=== PATIENT | female | born 1990 | race Caucasian/White ===

== ENCOUNTER → 2016-08-03 | Outpatient (CLI) | payer OTHER ==
[2016-08-03 13:48] LABS: CH 31.2; HCT 36.5 % (34.0-46.0); HGB 12.8 gm/dL (11.4-16.0); MCH 30.6 pg (25.0-35.0); MCHC 35.2 g/dL (31.0-37.0); Mean Platelet Volume 7.9; RBC 4.19 m/uL (3.80-5.40); RDW 12.4 % (11.5-15.5); WBC 12.4 k/uL (3.8-10.6)
[2016-08-03 14:09] LABS: Glucose 106 mg/dL (74-99); Non-African American GFR(MDRD) >60 (>60 ml/min/1.73 sqM)
[2016-08-03 14:41] LABS: Hepatitis B Surface Ag Index 0.06
[2016-08-04 05:14] LABS: Toxoplasma Antibody (IgG) <3.0 IU/mL (<7.2)
== END | disposition home or self-care (01) ==
LOC: LABWHC1 13:08
PROVIDERS: ATTEND Obstetrics & Gynecology
DX: Z34.82 Encounter for supervision of other normal pregnancy, second trimester (principal); Z3A.00 Weeks of gestation of pregnancy not specified
CPT/HCPCS: 36415; 82565; 82947; 85027; 86762; 86777; 86778; 86780; 86850; 86900; 86901; 87340

== ENCOUNTER → 2016-08-23 | Outpatient (CLI) | payer OTHER ==
--- NOTE | 2016-08-23 09:25 | US ---
EXAMINATION TYPE: US OB anatomy transabd DATE OF EXAM: 08/23/2016 9:06 AM COMPARISON: NONE HISTORY: LGA TECHNIQUE: EXAM MEASUREMENTS: GESTATIONAL AGE / DATING Physician Established: (19 weeks/0 days) EDC: 01/17/2017 Dates by LMP: (19 weeks/0 days) EDC: 01/17/2017 Dates by First Scan: this is first scan here Dates by Current Scan for: (19 weeks/4 days) EDC: 01/13/2017 SURVEY IUP: Single PLACENTA: Anterior PREVIA: No previa LINA: 14.7 cm Normal CERVICAL LENGTH (transabdominal: norm > 3.0cm): 4.9 cm BIOMETRY PRESENTATION: Breech BPD: 4.5 cm 19 weeks / 6 days HC: 16.8 cm 19 weeks / 3 days AC: 14.5 cm 19 weeks / 6 days FL: 3.2 cm 20 weeks / 0 days ESTIMATED WEIGHT IN GRAMS: 316 grams ESTIMATED WEIGHT IN LBS/OZS: 0 lbs. 12 oz. WEIGHT PERCENTAGE BASED ON ESTABLISHED DATE: 89 % HC/AC: 1.2 FL/AC: 22 HEART RATE: 152 bpm RHYTHM: Normal ANATOMY SEEN (within normal limits): * Lateral Vent (< 1 cm) 0.7 cm * Cisterna Magna (< 1.1 cm) 0.3 cm * Nuchal Fold (< 0.6 cm) 0.4 cm * Cerebellum (varies with age) 1.9 cm Choroid Plexus (bilateral) Midline Falx Cavus Septi Pellucidi Four Chamber Heart Outflow tracts: LVOT/RVOT Stomach Situs Nose / Lips Diaphragm Kidneys (bilateral) Bladder Cord Insert Three Vessel Cord Longitudinal Spine Transverse Spine Arms (bilateral) Legs (bilateral) growth according to dates IMPRESSION: RAMIREZ FETUS PRESENT IN A BREECH PRESENTATION WITH A GESTATIONAL AGE OF 19 WEEKS 4 DAYS +/- 12 DAY S. ESTIMATED DATE OF CONFINEMENT BASED ON THIS EXAMINATION IS 01/13/2017.
== END | disposition home or self-care (01) ==
LOC: RADUSWWP 08:19
PROVIDERS: ATTEND Obstetrics & Gynecology
DX: O32.1XX0 Maternal care for breech presentation, not applicable or unspecified (principal); Z3A.19 19 weeks gestation of pregnancy
CPT/HCPCS: 76811

== ENCOUNTER → 2016-10-04 | Outpatient (CLI) | payer OTHER ==
[2016-10-04 12:33] LABS: CH 31.5; CHCM 34.6; HCT 36.9 % (34.0-46.0); HGB 12.9 gm/dL (11.4-16.0); MCH 31.9 pg (25.0-35.0); MCHC 34.8 g/dL (31.0-37.0); MCV 91.5 fL (80.0-100.0); Mean Platelet Volume 7.7; RBC 4.03 m/uL (3.80-5.40); RDW 13.1 % (11.5-15.5); WBC 12.8 k/uL (3.8-10.6)
== END | disposition home or self-care (01) ==
LOC: LABWHC1 11:01
PROVIDERS: ATTEND Obstetrics & Gynecology
DX: Z34.92 Encounter for supervision of normal pregnancy, unspecified, second trimester (principal)
CPT/HCPCS: 36415; 82950; 85027

== ENCOUNTER → 2016-10-18 | Outpatient (CLI) | payer OTHER ==
[2016-10-18 12:42] LABS: Glucose 3 Hour, Gest 148 mg/dL
== END | disposition home or self-care (01) ==
LOC: LABWHC1 08:43
PROVIDERS: ATTEND Obstetrics & Gynecology
DX: O99.810 Abnormal glucose complicating pregnancy (principal); Z3A.00 Weeks of gestation of pregnancy not specified
CPT/HCPCS: 36415; 82951; 82952

== ENCOUNTER 2017-01-09 18:06 | Inpatient (IN) | payer OTHER ==
[2017-01-09] MEDS ORDERED: CARBOPROST TROMETHAMINE 250 MCG/ML 1 ML AMP IM PRN (18:52)
[2017-01-09] MEDS ORDERED: LIDOCAINE 1% (PF) 10 MG/ML (30 ML SDV) SQ PRN (18:52)
[2017-01-09] MEDS ORDERED: OXYTOCIN 10 UNIT/ML 1 ML VIAL IM PRN (18:52)
[2017-01-09] MEDS ORDERED: TERBUTALINE 1 MG/ML VIAL SQ PRN (18:52)
[2017-01-09] MEDS ORDERED: METHYLERGONOVINE 0.2 MG/ML 1 ML AMP IM PRN (18:52)
[2017-01-09] MEDS: LACTATED RINGERS 1,000 ML IV SCH ×2 (19:05→19:28)
[2017-01-09 19:19] LABS: Basophils % (A) 0 %; CH 32.3; CHCM 36.3; Eosinophils # (A) 0.1 k/uL (0-0.7); Eosinophils % (A) 1 %; HCT 41.3 % (34.0-46.0); HDW 2.53; Luc # (Auto) 0.28; Luc % (Auto) 3; Lymphocytes # (A) 2.3 k/uL (1.0-4.8); Lymphocytes % (A) 22 %; MCH 32.4 pg (25.0-35.0); MCHC 36.3 g/dL (31.0-37.0); MCV 89.2 fL (80.0-100.0); Mean Platelet Volume 8.8; Monocytes # (A) 0.5 k/uL (0-1.0); Monocytes % (A) 4 %; Neutrophils # (A) 7.6 k/uL (1.3-7.7); Neutrophils % (A) 70 %; RBC 4.63 m/uL (3.80-5.40); RDW 13.2 % (11.5-15.5); WBC 10.8 k/uL (3.8-10.6); WBC (Perox) 10.47
[2017-01-09] MEDS: BUTORPHANOL 1 MG/ML 1 ML VIAL IV SCH (19:23)
--- NOTE | 2017-01-09 19:47 | P.HPOB ---
History of Present Illness H&P Date: 01/09/17 Chief Complaint: Contractions and leaking fluid. This patient is a 26-year-old 4 para 3 female estimated date of confinement 01/17/2017 estimated gestational age 38-6/7 weeks who presents to labor and delivery with complaints of contractions and leaking of fluid. Patient's found to be in active labor. Patient's care is per Dr. Odell and appears to be uncomplicated. Review of Systems Constitutional: Denies chills, Denies fever Ears, nose, mouth and throat: Denies headache, Denies sore throat Cardiovascular: Denies chest pain, Denies shortness of breath Respiratory: Denies cough Gastrointestinal: Reports heartburn Genitourinary: Reports Menstruation: Reports amenorrhea Integumentary: Denies pruritus, Denies rash Neurological: Denies numbness, Denies weakness Past Medical History Past Medical History: No Reported History Additional Past Medical History / Comment(s): Patient has had 3 spontaneous vaginal deliveries ranging from 6-1/2-7 lbs. 11 oz. History of Any Multi-Drug Resistant Organisms: None Reported Past Surgical History: No Surgical Hx Reported Past Anesthesia/Blood Transfusion Reactions: No Reported Reaction Past Psychological History: No Psychological Hx Reported Smoking Status: Former smoker Past Alcohol Use History: None Reported Past Drug Use History: None Reported Medications and Allergies Home Medications Medication Instructions Recorded Confirmed Type Pnv,Calcium 72/Iron/Folic Acid 1 tab PO DAILY 01/09/17 01/09/17 History [ Plus Tablet] Allergies Allergy/AdvReac Type Severity Reaction Status Date / Time No Known Allergies Allergy Verified 01/09/17 18:19 Exam - Vital Signs Vital signs: Vital Signs Temp Pulse Resp BP Pulse Ox 01/09/17 18:35 98.3 F 81 16 126/76 97 Intake and Output 01/09/17 01/09/17 01/09/17 06:59 14:59 22:59 Other: Weight 100.698 kg Patient Weight 01/10/17 06:59 Weight 100.698 kg - OBG Physical Exam Abdomen: bowel sounds normal, no diffuse tenderness, no bruit present, no guarding noted, no hepatomegaly, no splenomegaly, no mass Vulva: both: normal Vagina: normal moisture, no discharge Cervix: Cervix on admission is 5 cm dilated with gross rupture membranes. Cervix: no lesion, no discharge Uterus: enlarged (Fundal height at her last visit was 39 cm.) Results blood work shows she is A positive, rubella immune, RPR is nonreactive , ultrasounds have been normal. Patient had an abnormal Glucola with a normal three-hour gtt. Group B strep was negative. Result Diagrams: 01/09/17 19:08 Abnormal Lab Results - Last 24 Hours (Table) 01/09/17 Range/Units 19:08 WBC 10.8 H (3.8-10.6) k/uL Assessment and Plan (1) Third trimester Narrative/Plan: This is a 26-year-old 4 para 3 female 38-6/7 weeks gestation admitted to labor and delivery spontaneous rupture membranes in active labor. Plan is anticipate vaginal delivery. Status: Acute (2) Normal labor Status: Acute
--- NOTE | 2017-01-09 19:48 | P.MSEPDOC ---
Presenting Problems - Arrival Data Date of Arrival on Unit: 01/09/17 Time of Arrival on Unit: 18:05 Mode of Transport: Ambulatory - Complaint OB-Reason for Admission/Chief Complaint: Possible Onset of Labor, Rule Out SROM Comment: states some contractions and had rom at 1740 this pm. Medical History - Information : 4 Para: 3 Term: 3 : 0 Abortions: Spontaneous or Elective: 0 Number of Living Children: 3 - Gestational Age Expected Date of Delivery: 01/17/17 Gestational Age by STARR (wks/days): 38 Weeks and 6 Days Review of Systems - Review of Systems Constitutional: No problems Breast: No problems ENT: No problems Cardiovascular: No problems Respiratory: No problems Gastrointestinal: No problems Genitourinary: No problems Musculoskeletal: No problems Neurological: No problems Skin: No problems Vital Signs - Temperature Temperature: 98.3 F Temperature Source: Oral - Pulse Right Brachial Pulse Rate: 81 Pulse Assessment Method: Auscultation - Respirations Respiratory Rate: 16 Oxygen Delivery Method: Room Air O2 Sat by Pulse Oximetry: 97 - Blood Pressure Right Arm Blood Pressure: 126/76 Blood Pressure Mean: 92 Blood Pressure Source: Automatic Cuff Medical Screen Scoring (Pre) - Cervical Exam Dilation: 4-7 cm = 2 Membranes: Ruptured = 3 - Uterine Contractions Frequency: > or = 36 weeks =2 Duration: > 40 seconds = 2 - Maternal Vital Signs Maternal Temperature: N/A Maternal Blood Pressure: N/A Signs of Preeclampsia: N/A Maternal Respirations: N/A - Maternal Trauma Maternal Trauma: N/A - Assessment Baseline FHR: 135 Heart Rate - NICHD Category: Category I (Normal) = 0 NST: Non-reactive = 3 - Total Score Total Score (Pre): 12 Physician Notification (Pre) - Physician Notified Physician/Practitioner Notifed:: yes Spoke With: vinayak New Order Received: Yes - Notification Comment Comment: admission Medical Screen Scoring (Post) - Cervical Exam Dilation: 4-7 cm = 2 Effacement: More than 50% = 2 Membranes: Ruptured = 3 - Uterine Contractions Frequency: N/A, > or = 36 weeks =2 Duration: N/A - Maternal Vital Signs Maternal Temperature: N/A Maternal Blood Pressure: N/A Signs of Preeclampsia: N/A Maternal Respirations: N/A - Maternal Trauma Maternal Trauma: N/A - Assessment Heart Rate: 135 Heart Rate - NICHD Category: Category I (Normal) = 0 NST: Non-reactive = 3 Position: N/A Station: N/A - Total Score Total Score (Post): 12 - Post Treatment Level of Risk Post Treatment Level of Risk: High (10+) Physician Notification (Post) - Physician Notified Physician Notified Date: 01/09/17 Physician Notified Time: 18:40 Physician/Practitioner Notified:: yes Spoke With: stew Paz Order Received: Yes - Notification Comment Comment: admit Disposition - Disposition OB Disposition: Admit Transferred to:: st 4 I agree with the RN Medical Screening Exam: Yes Risk & Benefit of care provided described in d/c instruction: Yes Diagnosis: ENCOUNTER FOR FULL-TERM UNCOMPLICATED DELIVERY
[2017-01-09 21:06] VITALS: BMI 41.9
[2017-01-09] MEDS ORDERED: LANOLIN CREAM 5 GM TUBE TOPICAL PRN (21:44)
[2017-01-09] MEDS ORDERED: HYDROCORTISONE 2.5% RECTAL CREAM 30 GM TUBE RECTAL PRN (21:44)
[2017-01-09] MEDS ORDERED: ZOLPIDEM 5 MG TAB PO PRN (21:44)
[2017-01-09] MEDS ORDERED: WITCH HAZEL 1 EACH MED..PAD TOPICAL PRN (21:44)
[2017-01-09] MEDS ORDERED: SIMETHICONE 80 MG CHEWABLE PO PRN (21:44)
[2017-01-09] MEDS ORDERED: diphenhydrAMINE 50 MG/ML 1 ML VIAL IVP PRN (21:44)
[2017-01-09] MEDS ORDERED: ACETAMINOPHEN TAB 325 MG TAB PO PRN (21:44)
[2017-01-09] MEDS ORDERED: BENZOCAINE/MENTHOL SPRAY 1 GM/SPRAY AEROSOL TOPICAL PRN (21:44)
[2017-01-09] MEDS ORDERED: diphenhydrAMINE 25 MG CAP PO PRN (21:44)
[2017-01-09] MEDS ORDERED: BISACODYL 10 MG SUPP RECTAL PRN (21:44)
[2017-01-09] MEDS ORDERED: Acetaminophen-Codeine 300-30mg TAB PO PRN (21:44)
[2017-01-09] MEDS ORDERED: OXYTOCIN 20 UNITS/1000 ML NS 1,000 ML IV SCH (21:45)
--- NOTE | 2017-01-09 21:55 | P.PROBDLV ---
Vaginal Delivery Note - . Vaginal Delivery Note: Normal vaginal delivery viable male infant Apgars 8 and 9 delivery time was 2128 hrs. Please see dictated H&P for intimate details of this patient's admission. Brief summary this is a 26-year-old 4 para 3 female 38-6/7 weeks gestation who was admitted to labor and delivery with spontaneous rupture membranes in active labor. Patient arrived she is 5 cm dilated and quickly goes to 8 cm dilated. She does request an epidural at this time however after multiple attempts this is unable to be placed. I did give her half a milligram of Stadol for pain control. Patient then does progress to complete and at this time has bradycardia to the 50s and 60s. Oxygen is up administered and position changes are done in the usual resuscitative measures as well. heart tones continued to be in the 60s to 80s and therefore patient is taken to the section room for possible emergent . While in the C- section room patient is noted have heart tones in the 90s and I have her push. Patient pushes the head to the perineum with still has bradycardia and at this time a vacuum was applied. The first application does not create an adequate vacuum therefore the second application is done and with 1 pull gently we have delivery the infant's head over the intact perineum. Mouth and nares are bulb suctioned at this time and is noted to have a loop of cord that was next to the head. With gentle downward traction we then have deliver the anterior and posterior shoulder and rest this 's body. This is a vigorous viable male infant Apgars are 8 and 9 delivery time was 2128 hrs. Infant has spontaneous respirations and good cry and grossly appears normal. After delivery of the the umbilical cords doubly clamped and cut. The placenta is then spontaneously delivered intact. Inspection of perineum shows no lacerations and no repair is necessary. All counts are correct 3. and mother are taken to the birthing suite in satisfactory condition.
[2017-01-09] MEDS: IBUPROFEN 600 MG TAB PO PRN (22:19)
--- NOTE | 2017-01-10 06:12 | P.PNOBGVD ---
Subjective - Subjective Patient reports: Reports appetite normal, Reports voiding normally, Reports pain well controlled, Reports ambulating normally : doing well Objective - Latest Vital Signs Latest vital signs: Vital Signs Temp Pulse Resp BP Pulse Ox 01/10/17 03:54 98.3 F 73 16 108/57 96 01/10/17 00:00 96.8 F L 63 16 129/65 01/09/17 23:42 96.8 F L 63 16 129/65 01/09/17 23:12 96.9 F L 73 16 125/68 01/09/17 22:42 68 16 119/59 01/09/17 22:27 96.6 F L 73 16 130/72 01/09/17 22:12 80 16 133/65 01/09/17 21:57 96.1 F L 87 16 130/63 01/09/17 21:42 71 16 132/79 98 01/09/17 19:48 98.3 F 81 16 126/76 97 01/09/17 19:07 98.3 F 81 16 126/76 97 01/09/17 18:35 98.3 F 81 16 126/76 97 Intake and Output 01/09/17 01/09/17 01/10/17 14:59 22:59 06:59 Other: # Voids 0 2 Weight 100.698 kg Patient Weight 01/10/17 06:59 Weight 100.698 kg - Exam Lungs: bilateral: normal Chest: Normal S1, Normal S2 Extremities: Present: normal Abdomen: Present: normal appearance, soft Uterus: Present: normal, firm - Labs Labs: Abnormal Lab Results - Last 24 Hours (Table) 01/09/17 Range/Units 19:08 WBC 10.8 H (3.8-10.6) k/uL Assessment and Plan (1) Third trimester Narrative/Plan: day #1. Patient is resting without complaints. Vital signs are stable she's afebrile. Uterus is firm nontender she's having normal lochia. My impression this is a normal course. Plan is to continue routine care discharge home tomorrow. Current Visit: Yes Status: Acute Code(s): Z34.93 - ENCNTR FOR SUPRVSN OF NORMAL PREG, UNSP, THIRD TRIMESTER SNOMED Code(s): 24647185 (2) Normal labor Current Visit: Yes Status: Acute Code(s): O80 - ENCOUNTER FOR FULL-TERM UNCOMPLICATED DELIVERY; Z37.9 - OUTCOME OF DELIVERY, UNSPECIFIED SNOMED Code(s ): 07888533
[2017-01-10] MEDS: Acetaminophen-Codeine 300-30mg TAB PO PRN ×2 (07:58→14:55)
[2017-01-10] MEDS: SENNOSIDES-DOCUSATE SODIUM 1 EACH TAB PO SCH ×2 (08:00→21:18)
[2017-01-10] MEDS: IBUPROFEN 600 MG TAB PO PRN ×2 (10:15→19:52)
[2017-01-10 17:07] VITALS: TEMP 98.3
[2017-01-10] MEDS: BUTORPHANOL 1 MG/ML 1 ML VIAL IV SCH ×2 (21:20→21:21)
[2017-01-10] MEDS ORDERED: MEASLES-MUMPS-RUBELLA VACC/PF 12,500 UNIT/0.5 ML VIAL SQ ONE (23:06)
[2017-01-11 00:07] VITALS: RESP 16
[2017-01-11] MEDS: Acetaminophen-Codeine 300-30mg TAB PO PRN (00:22)
--- NOTE | 2017-01-11 06:36 | P.PNOBGVD ---
Subjective - Subjective Patient reports: Reports appetite normal, Reports voiding normally, Reports pain well controlled, Reports ambulating normally : doing well Objective - Latest Vital Signs Latest vital signs: Vital Signs Temp Pulse Resp BP 01/11/17 00:00 98.3 F 59 L 16 136/80 01/10/17 16:00 98.3 F 67 20 126/72 01/10/17 12:00 97.6 F 62 20 131/76 01/10/17 08:00 98.2 F 64 20 138/82 Intake and Output 01/10/17 01/10/17 01/11/17 14:59 22:59 06:59 Intake Total 360 Balance 360 Intake: Oral 360 Other: # Voids 1 1 1 - Exam Lungs: bilateral: normal Chest: Normal S1, Normal S2 Extremities: Present: normal Abdomen: Present: normal appearance, soft Uterus: Present: normal, firm Assessment and Plan (1) Third trimester Narrative/Plan: day #2. Patient is resting without complaints and wishes to go home. Vital signs are stable and she is afebrile. Uterus is firm nontender she 's having normal lochia. My impression is a normal course. Plan is to discharge home today. Current Visit: Yes Status: Acute Code(s): Z34.93 - ENCNTR FOR SUPRVSN OF NORMAL PREG, UNSP, THIRD TRIMESTER SNOMED Code(s): 82871577 (2) Normal labor Current Visit: Yes Status: Acute Code(s): O80 - ENCOUNTER FOR FULL-TERM UNCOMPLICATED DELIVERY; Z37.9 - OUTCOME OF DELIVERY, UNSPECIFIED SNOMED Code(s ): 20580958
--- NOTE | 2017-01-11 06:37 | P.DS ---
Providers Date of admission: 01/09/17 19:06 Expected date of discharge: 01/11/17 Attending physician: Ene Odell Primary care physician: Stated None - Discharge Diagnosis(es) (1) Third trimester Current Visit: Yes Status: Acute (2) Normal labor Current Visit: Yes Status: Acute Hospital Course: Please see dictated H&P for intimate details of this patient's admission. Brief summary this 26-year-old 4 para 3 female who is admitted to labor and delivery in active labor. She was on have a vaginal delivery viable male infant. day 2 patient's felt be stable for discharge home follow up with Dr. Odell and 6 weeks. Procedures: Normal vaginal delivery Patient Condition at Discharge: Good Plan - Discharge Summary New Discharge Prescriptions: New Acetaminophen-Codeine 300-30mg [Tylenol w/codeine #3] 1 - 2 each PO Q4HR PRN #30 tab PRN Reason: Mild Pain exceeding Tylenol Ibuprofen [Motrin] 600 mg PO Q6HR PRN #40 tab PRN Reason: Mild Pain Or Fever >= 100.5 No Action Pnv,Calcium 72/Iron/Folic Acid [ Plus Tablet] 1 tab PO DAILY Discharge Medication List Pnv,Calcium 72/Iron/Folic Acid [ Plus Tablet] 1 tab PO DAILY 01/09/17 [ History] Acetaminophen-Codeine 300-30mg [Tylenol w/codeine #3] 1 - 2 each PO Q4HR PRN # 30 tab 01/11/17 [Rx] Ibuprofen [Motrin] 600 mg PO Q6HR PRN #40 tab 01/11/17 [Rx] Follow up Appointment(s)/Referral(s): Ene Odell DO [Doctor of Osteopathic Medicine] - 02/21/17 11:15 am Patient Instructions/Handouts: Vaginal Delivery (DC) Activity/Diet/Wound Care/Special Instructions: No intercourse or anything per vagina for 6 weeks. Please call if any fever, chills, excessive vaginal bleeding, and/or abdominal pain. Discharge Disposition: HOME SELF-CARE
[2017-01-11] MEDS: IBUPROFEN 600 MG TAB PO PRN (07:42)
[2017-01-11 08:50] VITALS: BP 122/80; PULSE 61
== END 2017-01-11 09:40 | disposition home or self-care (01) | DRG 775 ==
LOC: FBPOP 18:06 → 4FBP 19:06
PROVIDERS: ADMIT Obstetrics & Gynecology; ATTEND Obstetrics & Gynecology
PROC: 10D07Z6 Extraction of Products of Conception, Vacuum, Via Natural or Artificial Opening (ICD-10-PCS; principal; 2017-01-09)
PROC: 10E0XZZ Delivery of Products of Conception, External Approach (ICD-10-PCS; principal; 2017-01-09)
DX: O76 Abnormality in fetal heart rate and rhythm complicating labor and delivery (principal); Z87.891 Personal history of nicotine dependence; Z37.0 Single live birth; Z3A.38 38 weeks gestation of pregnancy
CPT/HCPCS: 59025; 85025; 88307; 90707; 99213

== ENCOUNTER 2017-09-16 06:42 | Emergency (ER) | payer OTHER ==
[2017-09-16 06:58] VITALS: TEMP 97.4
--- NOTE | 2017-09-16 07:15 | ED ---
General Adult HPI - General Chief complaint: Chest Pain Stated complaint: Chest Pain Time Seen by Provider: 09/16/17 07:00 Source: patient, EMS, RN notes reviewed Mode of arrival: EMS Limitations: no limitations - History of Present Illness Initial comments: 27-year-old female who presents emergency Department with no significant past medical history other than having had some gallstones in the past. Patient states she started having pain that radiates from her epigastric region to her back. Patient states it started yesterday and continued all the way through the night. Patient states she went to [facility] where she left AMA. Patient states when she vomited while at the other facility she felt considerably better so she went home. Patient states the pain came on again and she didn't know what to do so she called an ambulance. Patient denies any shortness of breath but she states that it hurts to take a deep breath. Patient denies any fever chills. Patient states burping or vomiting seemed to help the pain. Patient denies any pain currently. Patient denies any dysuria hematuria urinary frequency. Patient states she has had similar pain in the past but never has lasted all day. - Related Data Home Medications Medication Instructions Recorded Confirmed [place] 1 tab PO HS 09/16/17 09/16/17 Allergies Allergy/AdvReac Type Severity Reaction Status Date / Time No Known Allergies Allergy Verified 09/16/17 07:05 Review of Systems ROS Statement: Those systems with pertinent positive or pertinent negative responses have been documented in the HPI. ROS Other: All systems not noted in ROS Statement are negative. Past Medical History Past Medical History: No Reported History Additional Past Medical History / Comment(s): Patient has had 3 spontaneous vaginal deliveries ranging from 6-1/2-7 lbs. 11 oz. History of Any Multi-Drug Resistant Organisms: None Reported Past Surgical History: No Surgical Hx Reported Past Anesthesia/Blood Transfusion Reactions: No Reported Reaction Past Psychological History: No Psychological Hx Reported Smoking Status: Current every day smoker Past Alcohol Use History: None Reported Past Drug Use History: None Reported - Past Family History Father Family Medical History: No Reported History General Exam - General Exam Comments Initial Comments: GENERAL: Patient is well-developed and well-nourished. Patient is nontoxic and well- hydrated and is in no acute distress. Patient is a little upset because she doesn't feel like the other hospital took her seriously ENT: Neck is soft and supple. No significant lymphadenopathy is noted. Oropharynx is clear. Moist mucous membranes. Neck has full range of motion without eliciting any pain. EYES: The sclera were anicteric and conjunctiva were pink and moist. Extraocular movements were intact and pupils were equal round and reactive to light. Eyelids were unremarkable. PULMONARY: Unlabored respirations. Good breath sounds bilaterally. No audible rales rhonchi or wheezing was noted. CARDIOVASCULAR: There is a regular rate and rhythm without any murmurs gallops or rubs. ABDOMEN: Soft and nontender with normal bowel sounds. No palpable organomegaly was noted. There is no palpable pulsatile mass. SKIN: Skin is clear with no lesions or rashes and otherwise unremarkable. NEUROLOGIC: Patient is alert and oriented x3. Cranial nerves II through XII are grossly intact. Motor and sensory are also intact. Normal speech, volume and content. Symmetrical smile. MUSCULOSKELETAL: Normal extremities with adequate strength and full range of motion. LYMPHATICS: No significant lymphadenopathy is noted PSYCHIATRIC: Patient is mildly anxious Limitations: no limitations Course Vital Signs 09/16/17 09/16/17 09/16/17 06:48 06:50 06:54 Temperature 98.5 F 97.4 F L Pulse Rate 86 76 Respiratory 18 16 16 Rate Blood Pressure 139/74 138/74 O2 Sat by Pulse 99 98 Oximetry 09/16/17 09/16/17 07:51 08:58 Temperature Pulse Rate 63 70 Respiratory 16 17 Rate Blood Pressure 133/71 119/72 O2 Sat by Pulse 99 97 Oximetry Medical Decision Making - Medical Decision Making EKG shows normal sinus rhythm at 63 bpm ME interval is on a 52 QRS is 86 QT interval 14 QTC is 427 per patient's EKG shows no ST segment elevation or depression or T wave abnormalities are noted. Ultrasound shows a mildly dilated common bile duct. Patient does have multiple gallstones. Patient has had no pain while in the emergency department. She states she will follow-up with a surgeon. - Lab Data Result diagrams: 09/16/17 06:52 09/16/17 06:52 Lab Results 09/16/17 09/16/17 09/16/17 Range/Units 06:52 06:52 06:52 WBC 10.7 H (3.8-10.6) k/uL RBC 4.95 (3.80-5.40) m/uL Hgb 14.1 (11.4-16.0) gm/dL Hct 40.4 (34.0-46.0) % MCV 81.6 (80.0-100.0) fL MCH 28.6 (25.0-35.0) pg MCHC 35.0 (31.0-37.0) g/dL RDW 12.4 (11.5-15.5) % Plt Count 275 (150-450) k/uL Neutrophils % 65 % Lymphocytes % 26 % Monocytes % 4 % Eosinophils % 3 % Basophils % 0 % Neutrophils # 6.9 (1.3-7.7) k/uL Lymphocytes # 2.8 (1.0-4.8) k/uL Monocytes # 0.5 (0-1.0) k/uL Eosinophils # 0.3 (0-0.7) k/uL Basophils # 0.0 (0-0.2) k/uL PT (9.0-12.0) sec INR (<1.2) APTT (22.0-30.0) sec Sodium 142 (137-145) mmol/L Potassium 4.0 (3.5-5.1) mmol/L Chloride 108 H (98-107) mmol/L Carbon Dioxide 21 L (22-30) mmol/L Anion Gap 13 mmol/L BUN 9 (7-17) mg/dL Creatinine 0.49 L (0.52-1.04) mg/dL Est GFR (CKD-EPI)AfAm >90 (>60 ml/min/1.73 sqM) Est GFR (CKD-EPI)NonAf >90 (>60 ml/min/1.73 sqM) Glucose 99 (74-99) mg/dL Calcium 8.8 (8.4-10.2) mg/dL Magnesium 1.8 (1.6-2.3) mg/dL Total Bilirubin 0.2 (0.2-1.3) mg/dL AST 13 L (14-36) U/L ALT 34 (9-52) U/L Alkaline Phosphatase 70 (38-126) U/L Total Creatine Kinase 71 (30-135) U/L CK-MB (CK-2) 0.5 (0.0-2.4) ng/mL CK-MB (CK-2) Rel Index 0.7 Troponin I <0.012 (0.000-0.034) ng/mL Total Protein 6.0 L (6.3-8.2) g/dL Albumin 3.8 (3.5-5.0) g/dL Amylase 35 (30-110) U/L Lipase 48 (23-300) U/L 09/16/17 Range/Units 06:52 WBC (3.8-10.6) k/uL RBC (3.80-5.40) m/uL Hgb (11.4-16.0) gm/dL Hct (34.0-46.0) % MCV (80.0-100.0) fL MCH (25.0-35.0) pg MCHC (31.0-37.0) g/dL RDW (11.5-15.5) % Plt Count (150-450) k/uL Neutrophils % % Lymphocytes % % Monocytes % % Eosinophils % % Basophils % % Neutrophils # (1.3-7.7) k/uL Lymphocytes # (1.0-4.8) k/uL Monocytes # (0-1.0) k/uL Eosinophils # (0-0.7) k/uL Basophils # (0-0.2) k/uL PT 9.7 (9.0-12.0) sec INR 1.0 (<1.2) APTT 22.7 (22.0-30.0) sec Sodium (137-145) mmol/L Potassium (3.5-5.1) mmol/L Chloride (98-107) mmol/L Carbon Dioxide (22-30) mmol/L Anion Gap mmol/L BUN (7-17) mg/dL Creatinine (0.52-1.04) mg/dL Est GFR (CKD-EPI)AfAm (>60 ml/min/1.73 sqM) Est GFR (CKD-EPI)NonAf (>60 ml/min/1.73 sqM) Glucose (74-99) mg/dL Calcium (8.4-10.2) mg/dL Magnesium (1.6-2.3) mg/dL Total Bilirubin (0.2-1.3) mg/dL AST (14-36) U/L ALT (9-52) U/L Alkaline Phosphatase (38-126) U/L Total Creatine Kinase (30-135) U/L CK-MB (CK-2) (0.0-2.4) ng/mL CK-MB (CK-2) Rel Index Troponin I (0.000-0.034) ng/mL Total Protein (6.3-8.2) g/dL Albumin (3.5-5.0) g/dL Amylase (30-110) U/L Lipase (23-300) U/L Disposition Clinical Impression: Biliary colic, Cholelithiasis Disposition: HOME SELF-CARE Condition: Good Instructions: Biliary Colic (ED), Gallstones (ED) Is patient prescribed a controlled substance at d/c from ED?: No Referrals: None,Stated [Primary Care Provider] - 1-2 days Carlos A Yap MD [Medical Doctor] - 1-2 days Time of Disposition: 08:48
[2017-09-16 07:35] LABS: Basophils % (A) 0 %; Eosinophils # (A) 0.3 k/uL (0-0.7); Eosinophils % (A) 3 %; HCT 40.4 % (34.0-46.0); HGB 14.1 gm/dL (11.4-16.0); Lymphocytes # (A) 2.8 k/uL (1.0-4.8); Lymphocytes % (A) 26 %; MCH 28.6 pg (25.0-35.0); MCV 81.6 fL (80.0-100.0); Mean Platelet Volume 7.3; Monocytes # (A) 0.5 k/uL (0-1.0); Monocytes % (A) 4 %; Neutrophils # (A) 6.9 k/uL (1.3-7.7); Neutrophils % (A) 65 %; Platelet Count 275 k/uL (150-450); RBC 4.95 m/uL (3.80-5.40); RDW 12.4 % (11.5-15.5); WBC 10.7 k/uL (3.8-10.6)
[2017-09-16 07:46] LABS: ALT 34 U/L (9-52); AST 13 U/L (14-36); Albumin 3.8 g/dL (3.5-5.0); Alkaline Phosphatase 70 U/L (38-126); Amylase 35 U/L (30-110); Anion Gap 13 mmol/L; Blood Urea Nitrogen 9 mg/dL (7-17); Calcium 8.8 mg/dL (8.4-10.2); Carbon Dioxide 21 mmol/L (22-30); Chloride 108 mmol/L (98-107); Glucose 99 mg/dL (74-99); Lipase 48 U/L (23-300); Magnesium 1.8 mg/dL (1.6-2.3); Sodium 142 mmol/L (137-145); Total Bilirubin 0.2 mg/dL (0.2-1.3)
[2017-09-16 07:49] LABS: Partial Thromboplastin Time 22.7 sec (22.0-30.0); Prothrombin Time 9.7 sec (9.0-12.0)
--- NOTE | 2017-09-16 07:49 | XR ---
EXAMINATION TYPE: XR chest 2V DATE OF EXAM: 09/16/2017 COMPARISON: NONE HISTORY: History of gallstones with right upper quadrant pain extending into chest today. TECHNIQUE: Frontal and lateral views of the chest are obtained. FINDINGS: There is no focal air space opacity, pleural effusion, or pneumothorax seen. The cardiac silhouette size is within normal limits. The osseous structures are intact. IMPRESSION: No acute cardiopulmonary process.
[2017-09-16 08:01] LABS: Creatine Kinase 71 U/L (30-135)
[2017-09-16 08:13] LABS: Creatine Kinase MB 0.5 ng/mL (0.0-2.4); Troponin I <0.012 ng/mL (0.000-0.034)
--- NOTE | 2017-09-16 08:35 | US ---
EXAMINATION TYPE: US gallbladder DATE OF EXAM: 09/16/2017 COMPARISON: NONE CLINICAL HISTORY: Chest Pain. Difficult exam due to patient's body habitus EXAM MEASUREMENTS: Liver Length: 18.2 cm Gallbladder Wall: 0.25 cm CBD: 0.6 cm Right Kidney: 11.4 x 4.4 x 5.7 cm Pancreas: Tail obscured by overlying bowel gas, visualized portions show no abnormality Liver: Heterogeneous, enlarged Gallbladder: Multiple echogenic foci visualized that are dependent within the gallbladder and mobile . Gallbladder is distended. Evidence for sonographic Tracy's sign: Yes CBD: Dilated Right Kidney: No hydronephrosis or masses seen There is no ascites. IMPRESSION: Cholelithiasis. Common bile duct is dilated. Consider surgery, gastroenterology consult
[2017-09-16 08:59] VITALS: BP 119/72; PULSE 70; RESP 17
== END 2017-09-16 09:04 | disposition home or self-care (01) ==
LOC: EC 06:42
DX: K80.70 Calculus of gallbladder and bile duct without cholecystitis without obstruction (principal); K83.8 Other specified diseases of biliary tract; R07.9 Chest pain, unspecified; F17.200 Nicotine dependence, unspecified, uncomplicated; Z79.899 Other long term (current) drug therapy
CPT/HCPCS: 36415; 71046; 76705; 80053; 82150; 82550; 82553; 83690; 83735; 84484; 85025; 85610; 85730; 93005; 99285

== ENCOUNTER 2017-09-30 07:15 | Day surgery (SDC) | payer OTHER ==
[2017-09-27 16:27] VITALS: BMI 40.6
[~2017-09-30 07:15] MED LIST: DEXAMETHASONE SOD PHOSPHATE 10 MG/ML 1 ML VIAL IV ONE; HEPARIN SODIUM,PORCINE 5,000 UNIT/ML 1 ML VIAL SQ ONE; LACTATED RINGERS 1,000 ML IV SCH; LIDOCAINE 1% 20 ML VIAL (10MG/ML) FOR IV START INTRADERMA PRN; MIDAZOLAM 2 MG/2 ML VIAL IV PRN; MORPHINE SULFATE 2 MG/ML SYRINGE IV PRN; SCOPOLAMINE 1.5MG/72HR PATCH TRANSDERM ONE; ceFAZolin IN SWFI 2 GM/20 ML SYRINGE IVP ONE; fentaNYL (PF) 50 MCG/ML 2 ML AMP IV PRN
--- NOTE | 2017-09-30 08:21 | P.GSHP ---
History of Present Illness H&P Date: 09/30/17 Chief Complaint: Right upper quadrant pain, cholelithiasis This is a 27-year-old female who's developer quadrant pain. Her recent ultrasound shows evidence of cholelithiasis. She presents today for laparoscopic cholecystectomy. Past Medical History Past Medical History: No Reported History Additional Past Medical History / Comment(s): STATES ABDOMINAL PAIN FROM GALL STONES. History of Any Multi-Drug Resistant Organisms: None Reported Past Surgical History: No Surgical Hx Reported Past Anesthesia/Blood Transfusion Reactions: No Reported Reaction Additional Past Anesthesia/Blood Transfusion Reaction / Comment(s): NO ANESTHESIA HX.- STATES THEY HAD DIFFICULTY INSERTING EPIDURAL FOR CHILDBIRTH Past Psychological History: No Psychological Hx Reported Smoking Status: Current every day smoker Past Alcohol Use History: None Reported Additional Past Alcohol Use History / Comment(s): SMOKES 2-3 CIGARETTES /DAY. SMOKING FOR 9-10 YEARS. Past Drug Use History: None Reported - Past Family History Father Family Medical History: No Reported History Mother Family Medical History: Cancer Additional Family Medical History / Comment(s): CERVICAL CANCER Medications and Allergies Home Medications Medication Instructions Recorded Confirmed Type [place]-L[place] 1 tab PO HS 09/16/17 09/30/17 History Allergies Allergy/AdvReac Type Severity Reaction Status Date / Time No Known Allergies Allergy Verified 09/30/17 07:43 Surgical - Exam Vital Signs Temp Pulse Resp BP Pulse Ox 97.1 F L 68 16 144/85 97 09/30/17 07:50 09/30/17 07:50 09/30/17 07:50 09/30/17 07:50 09/30/17 07:50 - General well developed, no distress - Eyes PERRL - ENT normal pinna - Neck no masses - Respiratory normal expansion - Cardiovascular Rhythm: regular - Abdomen Abdomen: soft, non tender Assessment and Plan Assessment: Cholelithiasis We'll perform laparoscopic cholecystectomy
[2017-09-30] MEDS ORDERED: ONDANSETRON ODT 4 MG TAB PO ONE (08:31)
[2017-09-30] MEDS ORDERED: SUCCINYLCHOLINE CHLORIDE 100 MG/5 ML SYR IV ONE (08:52)
[2017-09-30] MEDS ORDERED: PROPOFOL 10 MG/ML 20 ML VIAL IV ONE (08:52)
[2017-09-30] MEDS ORDERED: fentaNYL (PF) 50 MCG/ML 2 ML AMP ONE (08:52)
[2017-09-30] MEDS ORDERED: ROCURONIUM BROMIDE 10 MG/ML 10 ML VIAL IV ONE (08:52)
[2017-09-30] MEDS ORDERED: LIDOCAINE 1% INJ 10MG/ML (20 ML MDV) ONE (08:52)
[2017-09-30] MEDS ORDERED: NEOSTIGMINE 1 MG/ML 10 ML VIAL ONE (08:52)
[2017-09-30] MEDS ORDERED: MIDAZOLAM 2 MG/2 ML VIAL ONE (08:52)
[2017-09-30] MEDS ORDERED: GLYCOPYRROLATE 0.2 MG/ML 2 ML VIAL ONE (08:52)
[2017-09-30] MEDS ORDERED: MORPHINE SULFATE 10 MG/ML SYRINGE ONE (08:52)
[2017-09-30] MEDS ORDERED: BUPIVACAINE (PF) 0.25% 30 ML VIAL SQ ONE (09:06)
[2017-09-30] MEDS ORDERED: LACTATED RINGERS 1,000 ML IV ONE (09:24)
--- NOTE | 2017-09-30 09:48 | P.OP ---
Date of Procedure: 09/30/17 Preoperative Diagnosis: Cholelithiasis Chronic cholecystitis Postoperative Diagnosis: Cholelithiasis Chronic cholecystitis Procedure(s) Performed: Laparoscopic cholecystectomy Anesthesia: ZEINA Surgeon: Volodymyr Barrientos Estimated Blood Loss (ml): 5 Pathology: other (Gallbladder) Condition: stable Disposition: PACU Description of Procedure: The patient was placed on the operating table. The patient received a general endotracheal tube anesthesia. The patients abdomen was prepped and draped in the usual sterile fashion. Through an infraumbilical stab incision, the fascia of the anterior abdominal wall was grasped with a pair of Kochers and then the Veress needle was placed in the peritoneal cavity. Position of the Veress needle was confirmed with positive drop test. The abdomen was then insufflated. After adequate insufflation, the 10 mm trocar was placed in the peritoneal cavity. Following this the laparoscope was placed in the peritoneal cavity. The patient was placed in the head-up, right side up position and then a 5 mm trocar was placed in the right lateral and right subcostal position under direct visualization. A 8 mm trocar was placed in the epigastric position. The gallbladder was grasped in the fundus and infundibulum. Traction on the gallbladder was placed in the lateral and the cephalad positions. The triangle of Calot was visualized.. The cystic duct was bluntly dissected until the union of the cystic duct and common bile duct was seen. The cystic duct was then divided and sealed with the Harmonic scissors. A PDS Endoloop was then placed throughout the cystic duct stump. The cystic artery divided and sealed with the Harmonic scissors. The gallbladder was then removed from the liver bed using Harmonic scissors. The gallbladder was then extracted through the epigastric port site. Operative field was checked for any bleeding spots and Harmonic scissors was used to coagulate the liver bed. The abdomen was irrigated. The trocars were removed. The skin was closed using interrupted 3-0 Vicryl suture. Dermabond dressing were applied. The patient tolerated the procedure well.
[2017-09-30 10:10] VITALS: TEMP 97.9
[2017-09-30] MEDS ORDERED: KETOROLAC 30 MG/ML 1 ML VIAL IVP ONE (10:20)
[2017-09-30] MEDS ORDERED: diphenhydrAMINE 50 MG/ML 1 ML VIAL IVP ONE (10:24)
[2017-09-30] MEDS: MEPERIDINE 50 MG/ML SYRINGE IVP ONE ×2 (10:37→10:45)
[2017-09-30 10:40] VITALS: RESP 18
[2017-09-30] MEDS ORDERED: HYDROcodone/APAP 7.5-325MG 1 EACH TAB PO ONE (12:23)
[2017-09-30 12:30] VITALS: BP 134/86; PULSE 80
== END 2017-09-30 13:07 | disposition home or self-care (01) ==
LOC: OR 07:15
PROVIDERS: ATTEND Surgery
DX: K80.10 Calculus of gallbladder with chronic cholecystitis without obstruction (principal); F17.210 Nicotine dependence, cigarettes, uncomplicated; K21.9 Gastro-esophageal reflux disease without esophagitis; Z79.3 Long term (current) use of hormonal contraceptives
CPT/HCPCS: 81025; 88304; 47562; J2250; J1200; J1644; J1100; J2710; J2175; J2270; J2001; J3010; J1885; J0330; J2704; J0690

== ENCOUNTER → 2018-12-28 | Outpatient (CLI) | payer OTHER ==
[2018-12-29 00:37] LABS: HSV I IgG Interp POSITIVE (NEGATIVE); HSV II IgG Interp NEGATIVE (NEGATIVE)
[2018-12-29 00:54] LABS: HIV 1 AB Non-Reactive (Non-Reactive); HIV 2 AB Non-Reactive (Non-Reactive); HIV AB P24 Non-Reactive (Non-Reactive); HIV P24 AG Non-Reactive (Non-Reactive)
[2018-12-29 13:39] LABS: Hepatitis B Surface Antigen Non-Reactive (Non-Reactive)
== END | disposition home or self-care (01) ==
LOC: LABWHC1 14:58
PROVIDERS: ATTEND Obstetrics & Gynecology
DX: N91.2 Amenorrhea, unspecified (principal); Z11.3 Encounter for screening for infections with a predominantly sexual mode of transmission
CPT/HCPCS: 36415; 84702; 86695; 86696; 86780; 87340; 87390

== ENCOUNTER 2022-08-14 10:10 | Emergency (ER) | payer OTHER ==
[2022-08-14] MEDS ORDERED: MORPHINE SULFATE 2 MG/ML SYRINGE IVP STA (10:17)
[2022-08-14] MEDS ORDERED: KETOROLAC 15 MG/ML 1 ML VIAL IVP STA (10:17)
[2022-08-14] MEDS ORDERED: ONDANSETRON 4 MG/2 ML VIAL IVP STA (10:17)
[2022-08-14] MEDS ORDERED: SODIUM CHLORIDE 0.9% 1,000 ML IV STA (10:17)
--- NOTE | 2022-08-14 10:20 | ED ---
Back Pain HPI - General Chief Complaint: Abdominal Pain Stated Complaint: R Flank Pain Time Seen by Provider: 08/14/22 10:13 Source: patient, RN notes reviewed Mode of arrival: EMS Limitations: no limitations - History of Present Illness Initial Comments: This is a 32-year-old female who presents to the emergency department for right flank pain. Patient states that it woke her up from her sleep early this morning. She has associated nausea but no vomiting. She does have a history of kidney stones, most recently several months ago, and states that this feels the same. She does not currently see a urologist. She was given Toradol and Zofran by EMS on route, which did offer some relief. Denies any blood in her urine or burning with urination, however she states that she does tend to pass tissue in her urine, however this has been a problem for several months. Denies any fevers, chills, or changes in bowel habits. Denies any fevers, chills, sore throat, cough, dyspnea, chest pain, palpitations, vomiting, diarrhea, or headaches. MD Complaint: back pain - Related Data Previous Rx's Medication Instructions Recorded Ketorolac [Toradol] 10 mg PO Q6HR PRN #12 tab 08/14/22 Ondansetron Odt [Zofran Odt] 4 mg PO Q8HR PRN #10 tab 08/14/22 cefUROXime axetiL [Ceftin] 500 mg PO BID 7 Days #14 tab 08/14/22 Allergies Allergy/AdvReac Type Severity Reaction Status Date / Time No Known Allergies Allergy Verified 08/14/22 13:44 Review of Systems ROS Statement: Those systems with pertinent positive or pertinent negative responses have been documented in the HPI. ROS Other: All systems not noted in ROS Statement are negative. Past Medical History Past Medical History: No Reported History Additional Past Medical History / Comment(s): STATES ABDOMINAL PAIN FROM GALL STONES. History of Any Multi-Drug Resistant Organisms: None Reported Past Surgical History: No Surgical Hx Reported Past Anesthesia/Blood Transfusion Reactions: No Reported Reaction Additional Past Anesthesia/Blood Transfusion Reaction / Comment(s): NO ANESTHESIA HX.- STATES THEY HAD DIFFICULTY INSERTING EPIDURAL FOR CHILDBIRTH Past Psychological History: No Psychological Hx Reported Past Alcohol Use History: None Reported Additional Past Alcohol Use History / Comment(s): SMOKES 2-3 CIGARETTES /DAY. SMOKING FOR 9-10 YEARS. Past Drug Use History: None Reported - Past Family History Father Family Medical History: No Reported History Mother Family Medical History: Cancer Additional Family Medical History / Comment(s): CERVICAL CANCER General Exam General appearance: alert, in distress Head exam: Present: atraumatic, normocephalic, normal inspection Respiratory exam: Present: normal lung sounds bilaterally. Absent: respiratory distress, wheezes, rales, rhonchi, stridor Cardiovascular Exam: Present: regular rate, normal rhythm, normal heart sounds. Absent: systolic murmur, diastolic murmur, rubs, gallop, clicks GI/Abdominal exam: Present: soft, normal bowel sounds. Absent: distended, tenderness, guarding, rebound, rigid Back exam: Present: CVA tenderness (R). Absent: CVA tenderness (L) Neurological exam: Present: alert, oriented X3, CN II-XII intact Psychiatric exam: Present: normal affect, normal mood Skin exam: Present: warm, dry, intact, normal color. Absent: rash Course Vital Signs 08/14/22 08/14/22 10:17 15:28 Temperature 98.3 F Pulse Rate 81 82 Respiratory 20 18 Rate Blood Pressure 132/74 130/70 O2 Sat by Pulse 96 Oximetry Medical Decision Making - Medical Decision Making This is a 32-year-old female who presents to the emergency department for flank pain. Was pt. sent in by a medical professional or institution? @ -No Did you speak to anyone other than the patient for history? @ -EMS Did you review nursing and triage notes? @ -Yes, and I agree, it is accurate with regards to the patient's symptoms. Were old charts reviewed? @ -No Differential Diagnosis? @ -Differential Back Pain: Strain, zoster, cauda equina syndrome, epidural abscess, vertebral osteomyelitis, discitis, fracture, subluxation, disc herniation, DJD, spinal stenosis, dissection, AAA, pancreatitis, peptic ulcer disease, pyelonephritis, kidney stone, this is not meant to be an all-inclusive list. CT interpreted by me (1pt min.)? @ -Computed tomography scan of the abdomen and pelvis obtained. My interpretation identifies a right renal calculus. What testing was considered but not performed? (CT, X-rays, U/S, labs)? Why? @ -None What meds were considered but not given? Why? @ -None Did you discuss the management of the patient with other professionals? @ -No Did you reconcile home meds? @ -No Was smoking cessation discussed for >3mins.? @ -No Was critical care preformed (if so, how long)? @ -No Were there social determinants of health that impacted care today? How? (Homelessness, low income, unemployed, alcoholism, drug addiction, transportation, low edu. Level, literacy, decrease access to med. care, shelter, rehab)? @ -No Was there de-escalation of care discussed even if they declined? (Discuss DNR or withdrawal of care, Hospice)? @ -No What co-morbidities impacted this encounter? (DM, HTN, Smoking, COPD, CAD, Cancer, CVA, Hep., AIDS, mental health diagnosis, sleep apnea, morbid obesity)? @ -Morbid obesity Was patient admitted / discharged? @ -Discharged. Lab work obtained and found to be nonactionable. Urinalysis consistent with infection. Computed tomography scan of the abdomen and pelvis consistent with a right ureteral calculus. Findings reviewed with the patient. She was given a dose of ceftriaxone in the emergency department. Her pain was fairly difficult to manage. Discussed that if it cannot be adequately controlled, we can admit her for pain control. Patient declined and requested discharge home. She then began to complain about ongoing epigastric pain that she has been experiencing over the last year. It feels similar to gallbladder problems, however she has since had her gallbladder removed. She has not ever had an EGD or seen a specialist with regards to this problem. I did give her information for gastroenterology follow-up along with urology follow-up. She is advised to contact both offices Tuesday morning for a follow-up appointment. Prescription for Keflex, Toradol, and Zofran provided with dosing instructions reviewed. Patient advised to avoid taking Toradol with any other anti- inflammatories and to only use Tylenol with it. Also advised to remain well- hydrated. Undiagnosed new problem with uncertain prognosis? @ -None Drug Therapy requiring intensive monitoring for toxicity (Heparin, Nitro, Insulin, Cardizem)? @ -None Were any procedures done? @ -None Diagnosis/symptom? @ -UTI, ureteral calculus Acute, or Chronic, or Acute on Chronic? @ -Acute Uncomplicated (without systemic symptoms) or Complicated (systemic symptoms)? @ -Uncomplicated Side effects of treatment? @ -None Exacerbation, Progression, or Severe Exacerbation] @ -Not applicable Poses a threat to life or bodily function? @ -No Return precautions reviewed in depth, the patient is instructed to return to the emergency department with any new, worsening, or concerning symptoms. Patient verbalized understanding. This case was discussed in detail with the attending ED physician, Dr. Alex. Presentation, findings, and treatment plan discussed in detail as well. - Lab Data Result diagrams: 08/14/22 10:28 08/14/22 10:28 Lab Results 08/14/22 08/14/22 08/14/22 Range/Units 10:28 10: 10: WBC 10.4 (3.8-10.6) k/uL RBC 5.07 (3.80-5.40) m/uL Hgb 15.7 (11.4-16.0) gm/dL Hct 45.9 (34.0-46.0) % MCV 90.5 (80.0-100.0) fL MCH 30.9 (25.0-35.0) pg MCHC 34.1 (31.0-37.0) g/dL RDW 12.1 (11.5-15.5) % Plt Count 258 (150-450) k/uL MPV 7.5 Neutrophils % 72 % Lymphocytes % 21 % Monocytes % 4 % Eosinophils % 2 % Basophils % 0 % Neutrophils # 7.5 (1.3-7.7) k/uL Lymphocytes # 2.2 (1.0-4.8) k/uL Monocytes # 0.4 (0-1.0) k/uL Eosinophils # 0.2 (0-0.7) k/uL Basophils # 0.1 (0-0.2) k/uL Sodium (137-145) mmol/L Potassium (3.5-5.1) mmol/L Chloride (98-107) mmol/L Carbon Dioxide (22-30) mmol/L Anion Gap mmol/L BUN (7-17) mg/dL Creatinine (0.52-1.04) mg/dL Est GFR (CKD-EPI)AfAm (>60 ml/min/1.73 sqM) Est GFR (CKD-EPI)NonAf (>60 ml/min/1.73 sqM) Glucose (74-99) mg/dL Plasma Lactic Acid German (0.7-2.0) mmol/L Calcium (8.4-10.2) mg/dL Total Bilirubin (0.2-1.3) mg/dL AST (14-36) U/L ALT (4-34) U/L Alkaline Phosphatase (38-126) U/L Total Protein (6.3-8.2) g/dL Albumin (3.5-5.0) g/dL Amylase (30-110) U/L Lipase (23-300) U/L Urine Color Yellow Urine Appearance Cloudy H (Clear) Urine pH 5.5 (5.0-8.0) Ur Specific [place] 1.017 (1.001-1.035) Urine Protein 1+ H (Negative) Urine Glucose (UA) Negative (Negative) Urine Ketones Negative (Negative) Urine Blood Moderate H (Negative) Urine Nitrite Positive H (Negative) Urine Bilirubin Negative (Negative) Urine Urobilinogen <2.0 (<2.0) mg/dL Ur Leukocyte Esterase Large H (Negative) Urine RBC 45 H (0-5) /hpf Urine WBC 133 H (0-5) /hpf Ur Squamous Epith Cells 9 H (0-4) /hpf Urine Bacteria Moderate H (None) /hpf Hyaline Casts 4 H (0-2) /lpf Urine Mucus Many H (None) /hpf Urine HCG, Qual Not Detected (Not Detectd) 08/14/22 08/14/22 Range/Units 10:28 10:28 WBC (3.8-10.6) k/uL RBC (3.80-5.40) m/uL Hgb (11.4-16.0) gm/dL Hct (34.0-46.0) % MCV (80.0-100.0) fL MCH (25.0-35.0) pg MCHC (31.0-37.0) g/dL RDW (11.5-15.5) % Plt Count (150-450) k/uL MPV Neutrophils % % Lymphocytes % % Monocytes % % Eosinophils % % Basophils % % Neutrophils # (1.3-7.7) k/uL Lymphocytes # (1.0-4.8) k/uL Monocytes # (0-1.0) k/uL Eosinophils # (0-0.7) k/uL Basophils # (0-0.2) k/uL Sodium 138 (137-145) mmol/L Potassium 4.4 (3.5-5.1) mmol/L Chloride 111 H (98-107) mmol/L Carbon Dioxide 19 L (22-30) mmol/L Anion Gap 8 mmol/L BUN 10 (7-17) mg/dL Creatinine 0.58 (0.52-1.04) mg/dL Est GFR (CKD-EPI)AfAm >90 (>60 ml/min/1.73 sqM) Est GFR (CKD-EPI)NonAf >90 (>60 ml/min/1.73 sqM) Glucose 101 H (74-99) mg/dL Plasma Lactic Acid German 0.8 (0.7-2.0) mmol/L Calcium 8.8 (8.4-10.2) mg/dL Total Bilirubin 0.4 (0.2-1.3) mg/dL AST 23 (14-36) U/L ALT 40 H (4-34) U/L Alkaline Phosphatase 81 (38-126) U/L Total Protein 7.0 (6.3-8.2) g/dL Albumin 4.3 (3.5-5.0) g/dL Amylase 44 (30-110) U/L Lipase 35 (23-300) U/L Urine Color Urine Appearance (Clear) Urine pH (5.0-8.0) Ur Specific [place] (1.001-1.035) Urine Protein (Negative) Urine Glucose (UA) (Negative) Urine Ketones (Negative) Urine Blood (Negative) Urine Nitrite (Negative) Urine Bilirubin (Negative) Urine Urobilinogen (<2.0) mg/dL Ur Leukocyte Esterase (Negative) Urine RBC (0-5) /hpf Urine WBC (0-5) /hpf Ur Squamous Epith Cells (0-4) /hpf Urine Bacteria (None) /hpf Hyaline Casts (0-2) /lpf Urine Mucus (None) /hpf Urine HCG, Qual (Not Detectd) - Radiology Data Radiology results: report reviewed, image reviewed Disposition Clinical Impression: Right renal stone, Epigastric pain, UTI (urinary tract infection) Disposition: HOME SELF-CARE Condition: Fair Instructions (If sedation given, give patient instructions): Kidney Stones (ED), Renal Colic (ED), Flank Pain (ED) Additional Instructions: Return to the emergency department with any new, worsening, or concerning symptoms. Take the antibiotic as prescribed for 7 days, with the first dose beginning tomorrow since you already received a dose of antibiotics here. You can take either the Toradol, or ibuprofen, do not take them together. You may take either of these with Tylenol for additional pain relief. Take the Zofran up to every 8 hours as needed for nausea and vomiting. Contact Dr. Bautista, urology, as listed below for a follow-up regarding the kidney stones. Contact Dr. De León, gastroenterology, for a follow-up regarding the ongoing epigastric pain. Try taking [id number] Pepcid or Protonix to help with your symptoms of epigastric pain. Follow up with your primary care provider in 1-2 days. Prescriptions: cefUROXime axetiL [Ceftin] 500 mg PO BID 7 Days #14 tab Ketorolac [Toradol] 10 mg PO Q6HR PRN #12 tab PRN Reason: Pain Ondansetron Odt [Zofran Odt] 4 mg PO Q8HR PRN #10 tab PRN Reason: Nausea And Vomiting Is patient prescribed a controlled substance at d/c from ED?: No Referrals: None,Stated [Primary Care Provider] - 1-2 days Joe Bautista MD [STAFF PHYSICIAN] - 1-2 days Brianna De León MD [STAFF PHYSICIAN] - 1-2 days
[2022-08-14 10:24] VITALS: TEMP 98.3
[2022-08-14 11:07] LABS: Basophils # (A) 0.1 k/uL (0-0.2); Basophils % (A) 0 %; Eosinophils # (A) 0.2 k/uL (0-0.7); Eosinophils % (A) 2 %; HCT 45.9 % (34.0-46.0); HGB 15.7 gm/dL (11.4-16.0); Lymphocytes # (A) 2.2 k/uL (1.0-4.8); Lymphocytes % (A) 21 %; MCH 30.9 pg (25.0-35.0); MCHC 34.1 g/dL (31.0-37.0); MCV 90.5 fL (80.0-100.0); Mean Platelet Volume 7.5; Monocytes # (A) 0.4 k/uL (0-1.0); Monocytes % (A) 4 %; Neutrophils # (A) 7.5 k/uL (1.3-7.7); Neutrophils % (A) 72 %; Platelet Count 258 k/uL (150-450); RBC 5.07 m/uL (3.80-5.40); RDW 12.1 % (11.5-15.5); WBC 10.4 k/uL (3.8-10.6)
--- NOTE | 2022-08-14 11:34 | CT ---
EXAMINATION TYPE: CT abdomen pelvis wo con DATE OF EXAM: 08/14/2022 COMPARISON: None HISTORY: 32-year-old female Right flank pain, history of renal stones CT DLP: 1046.4 mGycm. Automated exposure control for dose reduction was used. TECHNIQUE: Contiguous axial scanning of the abdomen and pelvis without IV contrast. Coronal and sagit janae reconstructions performed. FINDINGS: Heart normal size without pericardial effusion. Lung bases clear without pleural effusion. Liver borderline enlarged at 17.1 cm. Cholecystectomy clips. Adrenal glands, spleen with tiny splenule, and pancreas show no gross abnormality by noncontrast CT. Numerous punctate bilateral renal calculi. Largest on the left measures 5 mm. There is also suggestio n of some faint medullary nephrocalcinosis. Findings may reflect underlying medullary sponge kidney. Other etiologies not excluded. There is an 8 mm stone at the right UPJ with mild hydronephrosis. Additional punctate nonobstructive right renal calculi are noted. No dilated small bowel, free fluid, or free air. No mesenteric or retroperitoneal lymphadenopathy. Normal appendix. Mild to moderate stool in the right side of the colon. No pericolic inflammatory orly nge. Bladder not distended. Uterus anteverted. Both ovaries are visualized with some follicular changes on the left. Small pelvic fluid. No abnormal fluid collection in the pelvis or pelvic lymphadenopathy. Bones: Mild to moderate degenerative disc disease throughout. IMPRESSION: 1. An 8 mm stone at the right UVJ with mild obstructive uropathy. 2. Additional punctate bilateral nonobstructive renal calculi. Adrenal to 5 mm on the left. There al so appears to be faint medullary nephrocalcinosis which is nonspecific but may be seen with medullary sponge kidney. Consider outpatient nephrology referral.
[2022-08-14 11:42] LABS: ALT 40 U/L (4-34); AST 23 U/L (14-36); African American GFR (CKD) >90 (>60 ml/min/1.73 sqM); Albumin 4.3 g/dL (3.5-5.0); Alkaline Phosphatase 81 U/L (38-126); Amylase 44 U/L (30-110); Anion Gap 8 mmol/L; Blood Urea Nitrogen 10 mg/dL (7-17); Calcium 8.8 mg/dL (8.4-10.2); Carbon Dioxide 19 mmol/L (22-30); Chloride 111 mmol/L (98-107); Glucose 101 mg/dL (74-99); Lipase 35 U/L (23-300); Non-African American GFR(CKD) >90 (>60 ml/min/1.73 sqM); Potassium 4.4 mmol/L (3.5-5.1); Sodium 138 mmol/L (137-145); Total Bilirubin 0.4 mg/dL (0.2-1.3)
[2022-08-14] MEDS ORDERED: HYDROmorphone 0.5 MG/0.5 ML SYRINGE IVP STA (11:42)
[2022-08-14] MEDS ORDERED: HYDROmorphone 1 MG/ML 1 ML SYRINGE IVP STA (13:10)
[2022-08-14 13:16] LABS: Appearance,Urine Cloudy (Clear); Bacteria,Urine Moderate /hpf; Bilirubin,Urine Negative (Negative); Blood,Urine Moderate (Negative); Color,Urine Yellow; Glucose,Urine (UA) Negative (Negative); Hyaline Casts,Urine 4 /lpf (0-2); Ketones,Urine Negative (Negative); Leukocyte Esterase,Urine Large (Negative); Mucus,Urine Many /hpf; Nitrite,Urine Positive (Negative); PH, Urine 5.5 (5.0-8.0); Protein,Urine 1+ (Negative); RBC,Urine 45 /hpf (0-5); Specific Gravity,Urine 1.017 (1.001-1.035); Squamous Epithelial Cell,Urine 9 /hpf (0-4); Urobilinogen,Urine <2.0 mg/dL (<2.0); WBC,Urine 133 /hpf (0-5)
[2022-08-14] MEDS ORDERED: cefTRIAXone IN SWFI 1,000 MG/10 ML SYRINGE IVP STA (13:23)
[2022-08-14] MEDS ORDERED: ONDANSETRON 4 MG ODT STARTER PACK 2 TAB BTL PO STA (15:03)
[2022-08-14] MEDS ORDERED: traMADol 50 MG STARTER PACK 3 TAB BTL PO STA (15:03)
[2022-08-14 15:32] VITALS: BP 130/70; PULSE 82; RESP 18
== END 2022-08-14 15:32 | disposition home or self-care (01) ==
LOC: EC 10:10
DX: N20.0 Calculus of kidney (principal); N39.0 Urinary tract infection, site not specified; F17.210 Nicotine dependence, cigarettes, uncomplicated
CPT/HCPCS: 99284; 96374 ×2; 96375 ×5; 96376 ×2; 96361 ×2; 36415; 80053; 82150; 83605; 83690; 85025; 81001; 81025; 87086; 87077; 87186; 74176; 99285; J2405; J0696; J2270; J1170 ×2; J1885; S0119

== ENCOUNTER 2022-09-04 16:31 | Inpatient (IN) | payer OTHER ==
[2022-09-04] MEDS ORDERED: ONDANSETRON 4 MG/2 ML VIAL IVP STA (17:29)
[2022-09-04] MEDS ORDERED: HYDROmorphone 1 MG/ML 1 ML SYRINGE IVP STA (17:29)
[2022-09-04 18:01] LABS: ALT 43 U/L (4-34); AST 30 U/L (14-36); African American GFR (CKD) >90 (>60 ml/min/1.73 sqM); Albumin 4.4 g/dL (3.5-5.0); Alkaline Phosphatase 100 U/L (38-126); Anion Gap 9 mmol/L; Blood Urea Nitrogen 15 mg/dL (7-17); Calcium 9.1 mg/dL (8.4-10.2); Carbon Dioxide 24 mmol/L (22-30); Chloride 104 mmol/L (98-107); Glucose 101 mg/dL (74-99); Lipase 35 U/L (23-300); Non-African American GFR(CKD) >90 (>60 ml/min/1.73 sqM); Potassium 4.2 mmol/L (3.5-5.1); Sodium 137 mmol/L (137-145); Total Bilirubin 0.6 mg/dL (0.2-1.3); Total Protein 7.2 g/dL (6.3-8.2)
--- NOTE | 2022-09-04 18:26 | CT ---
EXAMINATION TYPE: CT abdomen pelvis w con DATE OF EXAM: 09/04/2022 COMPARISON: 08/14/2022 HISTORY: flank pain, nausea, vomiting CT DLP: 1772.1 mGycm Automated exposure control for dose reduction was used. CONTRAST: CT scan of the abdomen pelvis is performed with IV Contrast, patient injected with 100 mL of Isovue 3 00. FINDINGS- LUNG BASES- No significant abnormality is appreciated. LIVER/GB- postcholecystectomy changes. PANCREAS- No gross abnormality is seen. SPLEEN- No gross abnormality is seen. Tiny accessory spleen. ADRENALS- No gross abnormality is seen. KIDNEYS/BLADDER-faint nephrocalcinosis noted by noncontrast recent study less well-seen on today's ex am. Right kidney: There is a 8 mm right renal calculus. There is mild right hydronephrosis. Left kidney: There is a delayed nephrogram with perinephric edema and moderate left-sided hydronephro sis. There is a punctate upper and lower pole 1 mm calculus. Moderate hydronephrosis secondary to obs tructing proximal left ureteral calculus measuring 4 mm BOWEL- nonspecific bowel gas pattern with no obstruction. Appendix normal. LYMPH NODES- No greater than 1cm abdominal or pelvic lymph nodes are appreciated. OSSEOUS STRUCTURES- No significant abnormality is seen. OTHER- aorta of normal caliber. Cystic structure measuring 2 cm right adnexa likely related to the o vary. IMPRESSION- 1. Bilateral nephrolithiasis with interval development of moderate left hydronephrosis with delayed n ephrogram, perinephric edema and obstructing 4 to 5 mm proximal ureteral calculus. Perinephric edema can be associated with infectious etiology correlate with urinalysis. 2. Right-sided nephrolithiasis with mild residual hydronephrosis
[2022-09-04 18:32] LABS: Basophils % (A) 0 %; Eosinophils # (A) 0.2 k/uL (0-0.7); Eosinophils % (A) 1 %; HCT 44.3 % (34.0-46.0); HGB 15.7 gm/dL (11.4-16.0); Lymphocytes # (A) 1.6 k/uL (1.0-4.8); Lymphocytes % (A) 13 %; MCH 30.7 pg (25.0-35.0); MCHC 35.5 g/dL (31.0-37.0); MCV 86.5 fL (80.0-100.0); Mean Platelet Volume 7.9; Monocytes # (A) 0.5 k/uL (0-1.0); Monocytes % (A) 5 %; Neutrophils # (A) 9.5 k/uL (1.3-7.7); Neutrophils % (A) 79 %; Platelet Count 233 k/uL (150-450); RBC 5.12 m/uL (3.80-5.40); RDW 12.2 % (11.5-15.5)
[2022-09-04 19:46] LABS: Appearance,Urine Cloudy (Clear); Bacteria,Urine Rare /hpf; Bilirubin,Urine Negative (Negative); Blood,Urine Large (Negative); Color,Urine Yellow; Glucose,Urine (UA) Negative (Negative); Ketones,Urine Negative (Negative); Leukocyte Esterase,Urine Trace (Negative); Mucus,Urine Rare /hpf; Nitrite,Urine Negative (Negative); PH, Urine 5.5 (5.0-8.0); Protein,Urine Negative (Negative); RBC,Urine 63 /hpf (0-5); Specific Gravity,Urine 1.028 (1.001-1.035); Squamous Epithelial Cell,Urine 10 /hpf (0-4); Urobilinogen,Urine <2.0 mg/dL (<2.0); WBC,Urine 6 /hpf (0-5)
[2022-09-04] MEDS ORDERED: diphenhydrAMINE 50 MG/ML 1 ML VIAL IVP STA (20:02)
[2022-09-04] MEDS ORDERED: KETOROLAC 15 MG/ML 1 ML VIAL IVP STA (20:02)
[2022-09-04] MEDS ORDERED: METOCLOPRAMIDE 5 MG/ML 2 ML VIAL IVP STA (20:02)
[2022-09-04] MEDS ORDERED: SODIUM CHLORIDE 0.9% 1,000 ML IV ONE (20:03)
--- NOTE | 2022-09-04 20:27 | ED ---
Abdominal Pain HPI - General Chief Complaint: Abdominal Pain Stated Complaint: Abd pain Source: patient Mode of arrival: ambulatory Limitations: no limitations - History of Present Illness Initial Comments: 32-year-old female who presents to the emergency department reporting left-sided flank pain. She was seen in the emergency department on the for right- sided flank pain. Does have a history of kidney stones. Was found to have an 8 mm stone in her right renl pelvis. She did have signs of UTI. Was discharged home on antibiotics. The patient states that her pain never improved. She does not believe that she passed the stone. She presents today stating that yes terday she began having left-sided flank pain with nausea and vomiting. She has a decrease in the amount that she is urinating and reports to an abnormal coloration to her urine. She denies any fevers. No concern for . No abnormal vaginal bleeding or discharge. No diarrhea, constipation, black or bloody stools. No other alleviating, precipitating or modifying factors - Related Data Home Medications Medication Instructions Recorded Confirmed No Known Home Medications 09/04/22 09/04/22 Allergies Allergy/AdvReac Type Severity Reaction Status Date / Time No Known Allergies Allergy Verified 09/04/22 17:15 Review of Systems ROS Statement: Those systems with pertinent positive or pertinent negative responses have been documented in the HPI. ROS Other: All systems not noted in ROS Statement are negative. Past Medical History Past Medical History: No Reported History Additional Past Medical History / Comment(s): STATES ABDOMINAL PAIN FROM GALL STONES. History of Any Multi-Drug Resistant Organisms: None Reported Past Surgical History: No Surgical Hx Reported Past Anesthesia/Blood Transfusion Reactions: No Reported Reaction Additional Past Anesthesia/Blood Transfusion Reaction / Comment(s): NO ANESTHESIA HX.- STATES THEY HAD DIFFICULTY INSERTING EPIDURAL FOR CHILDBIRTH Past Psychological History: No Psychological Hx Reported Smoking Status: Current every day smoker Past Alcohol Use History: None Reported Past Drug Use History: None Reported - Past Family History Father Family Medical History: No Reported History Mother Family Medical History: Cancer Additional Family Medical History / Comment(s): CERVICAL CANCER General Exam Limitations: no limitations Course Vital Signs 09/04/22 09/04/22 16:47 20:22 Temperature 98 F Pulse Rate 82 88 Respiratory 20 18 Rate Blood Pressure 105/89 127/105 O2 Sat by Pulse 96 96 Oximetry Medical Decision Making - Medical Decision Making Was pt. sent in by a medical professional or institution (OZIEL Agarwal, [employer], urgent care, hospital, or halfway...) When possible be specific @ -[No] Did you speak to anyone other than the patient for history (EMS, parent, family, police, friend...)? What history was obtained from this source @ -[No] Did you review nursing and triage notes (agree or disagree)? Why? @ -[I reviewed and agree with nursing and triage notes] Were old charts reviewed (outside hosp., previous admission, EMS record, old EKG, old radiological studies, urgent care reports/EKG's, halfway records)? Report findings @ -[No old charts were reviewed] Differential Diagnosis (chest pain, altered mental status, abdominal pain women, abdominal pain men, vaginal bleeding, weakness, fever, dyspnea, syncope, headache, dizziness, GI bleed, back pain, seizure, CVA, palpatations, mental health, musculoskeletal)? @ -[not applicable] EKG interpreted by me (3pts min.). @ -[As above] X-rays interpreted by me (1pt min.). @ -[None done] CT interpreted by me (1pt min.). @ -[None done] U/S interpreted by me (1pt. min.). @ -[None done] What testing was considered but not performed or refused? (CT, X-rays, U/S, labs)? Why? @ -[None] What meds were considered but not given or refused? Why? @ -[None] Did you discuss the management of the patient with other professionals (professionals i.e. OZIEL Agarwal, [employer], lab, RT, psych nurse, social studies department chair, head of acquisitions, teacher, aeronautical engineering officer, case filler)? Give summary @ -[No] Was smoking cessation discussed for >3mins.? @ -[No] Was critical care preformed (if so, how long)? @ -[No] Were there social determinants of health that impacted care today? How? (Homelessness, low income, unemployed, alcoholism, drug addiction, transportation, low edu. Level, literacy, decrease access to med. care, correction, rehab)? @ -[No] Was there de-escalation of care discussed even if they declined (Discuss DNR or withdrawal of care, Hospice)? DNR status @ -[No] What co-morbidities impacted this encounter? (DM, HTN, Smoking, COPD, CAD, Cancer, CVA, ARF, Chemo, Hep., AIDS, mental health diagnosis, sleep apnea, morbid obesity)? @ -[None] Was patient admitted / discharged? Hospital course, mention meds given and route, prescriptions, significant lab abnormalities, going to OR and other pertinent info. @ -On arrival patient was placed into room 21. There are history and physical exam was performed. Patient was found on the floor she is so comfortable from her pain. IV is established. She was given 1 mg of Dilaudid and 4 mg of Zofran. Laboratory studies are conducted and reviewed. White count 12. Urinalysis does demonstrate 6 white blood cells with rare bacteria. CT is performed which continues to demonstrate the stone in the right renal pelvis. There is now a new left ureteral stone measuring 4-5 mm. Patient is reevaluated and continues to have significant pain. She does throw up in the waste basket. She was given Reglan, Benadryl and Toradol for pain. Reassessment continues demonstrate pain. Because of this I did call Dr. woo and discussed the case with him. He was agreeable to getting the patient. She will be made nothing by mouth at midnight. Patient awaiting a bed on the floor Undiagnosed new problem with uncertain prognosis? @ -[No] Drug Therapy requiring intensive monitoring for toxicity (Heparin, Nitro, Insulin, Cardizem)? @ -[No] Were any procedures done? @ -[No] Diagnosis/symptom? @ -[default] Acute, or Chronic, or Acute on Chronic? @ -[default] Uncomplicated (without systemic symptoms) or Complicated (systemic symptoms)? @ -[default] Side effects of treatment? @ -[No] Exacerbation, Progression, or Severe Exacerbation? @ -[No] Poses a threat to life or bodily function? How? (Chest pain, [place], [place], pneumonia, PE, COPD, DKA, ARF, appy, cholecystitis, CVA, Diverticulitis, Homicidal, Suicidal, threat to staff... and all critical care pts) @ -[No] - Lab Data Result diagrams: 09/04/22 17:31 09/04/22 17:31 Lab Results 09/04/22 09/04/22 09/04/22 Range/Units 17:31 17:31 17:31 WBC 12.0 H (3.8-10.6) k/uL RBC 5.12 (3.80-5.40) m/uL Hgb 15.7 (11.4-16.0) gm/dL Hct 44.3 (34.0-46.0) % MCV 86.5 (80.0-100.0) fL MCH 30.7 (25.0-35.0) pg MCHC 35.5 (31.0-37.0) g/dL RDW 12.2 (11.5-15.5) % Plt Count 233 (150-450) k/uL MPV 7.9 Neutrophils % 79 % Lymphocytes % 13 % Monocytes % 5 % Eosinophils % 1 % Basophils % 0 % Neutrophils # 9.5 H (1.3-7.7) k/uL Lymphocytes # 1.6 (1.0-4.8) k/uL Monocytes # 0.5 (0-1.0) k/uL Eosinophils # 0.2 (0-0.7) k/uL Basophils # 0.0 (0-0.2) k/uL Sodium (137-145) mmol/L Potassium (3.5-5.1) mmol/L Chloride (98-107) mmol/L Carbon Dioxide (22-30) mmol/L Anion Gap mmol/L BUN (7-17) mg/dL Creatinine (0.52-1.04) mg/dL Est GFR (CKD-EPI)AfAm (>60 ml/min/1.73 sqM) Est GFR (CKD-EPI)NonAf (>60 ml/min/1.73 sqM) Glucose (74-99) mg/dL Calcium (8.4-10.2) mg/dL Total Bilirubin (0.2-1.3) mg/dL AST (14-36) U/L ALT (4-34) U/L Alkaline Phosphatase (38-126) U/L Total Protein (6.3-8.2) g/dL Albumin (3.5-5.0) g/dL Lipase (23-300) U/L Urine Color Yellow Urine Appearance Cloudy H (Clear) Urine pH 5.5 (5.0-8.0) Ur Specific [place] 1.028 (1.001-1.035) Urine Protein Negative (Negative) Urine Glucose (UA) Negative (Negative) Urine Ketones Negative (Negative) Urine Blood Large H (Negative) Urine Nitrite Negative (Negative) Urine Bilirubin Negative (Negative) Urine Urobilinogen <2.0 (<2.0) mg/dL Ur Leukocyte Esterase Trace H (Negative) Urine RBC 63 H (0-5) /hpf Urine WBC 6 H (0-5) /hpf Ur Squamous Epith Cells 10 H (0-4) /hpf Urine Bacteria Rare H (None) /hpf Urine Mucus Rare H (None) /hpf Urine HCG, Qual Not Detected (Not Detectd) 09/04/22 Range/Units 17:31 WBC (3.8-10.6) k/uL RBC (3.80-5.40) m/uL Hgb (11.4-16.0) gm/dL Hct (34.0-46.0) % MCV (80.0-100.0) fL MCH (25.0-35.0) pg MCHC (31.0-37.0) g/dL RDW (11.5-15.5) % Plt Count (150-450) k/uL MPV Neutrophils % % Lymphocytes % % Monocytes % % Eosinophils % % Basophils % % Neutrophils # (1.3-7.7) k/uL Lymphocytes # (1.0-4.8) k/uL Monocytes # (0-1.0) k/uL Eosinophils # (0-0.7) k/uL Basophils # (0-0.2) k/uL Sodium 137 (137-145) mmol/L Potassium 4.2 (3.5-5.1) mmol/L Chloride 104 (98-107) mmol/L Carbon Dioxide 24 (22-30) mmol/L Anion Gap 9 mmol/L BUN 15 (7-17) mg/dL Creatinine 0.83 (0.52-1.04) mg/dL Est GFR (CKD-EPI)AfAm >90 (>60 ml/min/1.73 sqM) Est GFR (CKD-EPI)NonAf >90 (>60 ml/min/1.73 sqM) Glucose 101 H (74-99) mg/dL Calcium 9.1 (8.4-10.2) mg/dL Total Bilirubin 0.6 (0.2-1.3) mg/dL AST 30 (14-36) U/L ALT 43 H (4-34) U/L Alkaline Phosphatase 100 (38-126) U/L Total Protein 7.2 (6.3-8.2) g/dL Albumin 4.4 (3.5-5.0) g/dL Lipase 35 (23-300) U/L Urine Color Urine Appearance (Clear) Urine pH (5.0-8.0) Ur Specific [place] (1.001-1.035) Urine Protein (Negative) Urine Glucose (UA) (Negative) Urine Ketones (Negative) Urine Blood (Negative) Urine Nitrite (Negative) Urine Bilirubin (Negative) Urine Urobilinogen (<2.0) mg/dL Ur Leukocyte Esterase (Negative) Urine RBC (0-5) /hpf Urine WBC (0-5) /hpf Ur Squamous Epith Cells (0-4) /hpf Urine Bacteria (None) /hpf Urine Mucus (None) /hpf Urine HCG, Qual (Not Detectd) Disposition Clinical Impression: Ureteral stone with hydronephrosis, Nausea & vomiting Disposition: ADMITTED IP TO THIS [facility] Condition: Stable Is patient prescribed a controlled substance at d/c from ED?: No Referrals: None,Stated [Primary Care Provider] - 1-2 days Time of Disposition: 20:38 Decision to Admit Reason: Admit from EC Decision Date: 09/04/22 Decision Time: 20:38
[2022-09-04] MEDS ORDERED: cefTRIAXone IN SWFI 1,000 MG/10 ML SYRINGE IVP STA (20:32)
[2022-09-04] MEDS ORDERED: NALOXONE 0.4 MG/ML 1 ML VIAL IV PRN (20:38)
[2022-09-04] MEDS: SODIUM CHLORIDE 0.9% 1,000 ML IV SCH (21:44)
[2022-09-04] MEDS: HYDROmorphone 1 MG/ML 1 ML SYRINGE IVP PRN (22:46)
[2022-09-05] MEDS: KETOROLAC 15 MG/ML 1 ML VIAL IVP PRN ×4 (02:12→20:16)
[2022-09-05] MEDS: SODIUM CHLORIDE 0.9% 1,000 ML IV SCH ×3 (05:50→19:38)
[2022-09-05 08:13] LABS: African American GFR (CKD) >90 (>60 ml/min/1.73 sqM); Anion Gap 5 mmol/L; Blood Urea Nitrogen 13 mg/dL (7-17); Calcium 7.8 mg/dL (8.4-10.2); Carbon Dioxide 24 mmol/L (22-30); Chloride 107 mmol/L (98-107); Glucose 92 mg/dL (74-99); Non-African American GFR(CKD) >90 (>60 ml/min/1.73 sqM); Potassium 4.2 mmol/L (3.5-5.1); Sodium 136 mmol/L (137-145)
[2022-09-05 08:26] LABS: Basophils % (A) 0 %; Eosinophils # (A) 0.1 k/uL (0-0.7); Eosinophils % (A) 1 %; HCT 40.2 % (34.0-46.0); HGB 14.2 gm/dL (11.4-16.0); Lymphocytes # (A) 1.8 k/uL (1.0-4.8); Lymphocytes % (A) 21 %; MCH 30.9 pg (25.0-35.0); MCHC 35.4 g/dL (31.0-37.0); MCV 87.5 fL (80.0-100.0); Mean Platelet Volume 7.8; Monocytes # (A) 0.5 k/uL (0-1.0); Monocytes % (A) 5 %; Neutrophils # (A) 6.1 k/uL (1.3-7.7); Neutrophils % (A) 71 %; Platelet Count 211 k/uL (150-450); RBC 4.59 m/uL (3.80-5.40); RDW 12.1 % (11.5-15.5); WBC 8.6 k/uL (3.8-10.6)
[2022-09-05] MEDS ORDERED: IV FLUID CONTINUATION 1,000 ML IV ONE ×3 (09:58→10:30)
[2022-09-05] MEDS ORDERED: MIDAZOLAM 2 MG/2 ML VIAL IVP ONE (10:25)
[2022-09-05] MEDS ORDERED: PROPOFOL 10 MG/ML 20 ML VIAL IV ONE (10:30)
[2022-09-05] MEDS ORDERED: fentaNYL (PF) 50 MCG/ML 2 ML AMP ONE (10:30)
[2022-09-05] MEDS ORDERED: LIDOCAINE 2% INJ 20 MG/ML (2 ML VIAL) ONE (10:30)
[2022-09-05] MEDS ORDERED: MIDAZOLAM 2 MG/2 ML VIAL ONE (10:30)
--- NOTE | 2022-09-05 10:36 | P.GSHP ---
History of Present Illness H&P Date: 09/05/22 Chief Complaint: left ureteral stone, right renal stone This is a 32 yo female with hx of 5 mm left sided proximal ureteral stone and 8 mm right sided renal pelvis stone causing bilateral hydronephrosis. She presented to the hospital with severe left flank pain associated with nausea and vomiting. She was in the hospital on August 14 right-sided flank pain, at that time a CT abdomen and pelvis was obtained which showed a 8mm right-sided UPJ stone. Repeat CT scan yesterday showed that the stone has moved to the renal pelvis, but there is still persistent hydronephrosis. She denies any dysuria or gross hematuria. Denies any fevers or chills. No previous history of kidney stones. On evaluation she continues to have left flank pain - Constitutional Constitutional: Denies chills, Denies fever - Cardiovascular Cardiovascular: Denies chest pain, Denies shortness of breath - Respiratory Respiratory: Denies cough, Denies 7 - Gastrointestinal Gastrointestinal: Reports abdominal pain, Reports nausea, Reports vomiting - Genitourinary (Female) Genitourinary: Reports flank pain, Reports kidney stones, Denies hematuria Past Medical History Past Medical History: No Reported History Additional Past Medical History / Comment(s): STATES ABDOMINAL PAIN FROM GALL STONES. History of Any Multi-Drug Resistant Organisms: None Reported Past Surgical History: No Surgical Hx Reported Past Anesthesia/Blood Transfusion Reactions: No Reported Reaction Additional Past Anesthesia/Blood Transfusion Reaction / Comment(s): NO ANESTHESIA HX.- STATES THEY HAD DIFFICULTY INSERTING EPIDURAL FOR CHILDBIRTH Past Psychological History: No Psychological Hx Reported Smoking Status: Current every day smoker Past Alcohol Use History: None Reported Additional Past Alcohol Use History / Comment(s): SMOKES 2-3 CIGARETTES /DAY. SMOKING FOR 9-10 YEARS. Past Drug Use History: Marijuana - Past Family History Father Family Medical History: No Reported History Mother Family Medical History: Cancer Additional Family Medical History / Comment(s): CERVICAL CANCER Medications and Allergies Home Medications Medication Instructions Recorded Confirmed Type No Known Home Medications 09/04/22 09/04/22 History Allergies Allergy/AdvReac Type Severity Reaction Status Date / Time No Known Allergies Allergy Verified 09/04/22 17:15 Surgical - Exam Vital Signs Temp Pulse Resp BP Pulse Ox 98 F 82 20 105/89 96 09/04/22 16:47 09/04/22 16:47 09/04/22 16:47 09/04/22 16:47 09/04/22 16:47 - General no distress, severe pain - Eyes normal ocular movement, no pale - ENT normal nares, normal mucosa - Respiratory normal expansion, normal respiratory effort - Abdomen Abdomen: soft, tender (Left flank) - Psychiatric oriented to time, oriented to person, oriented to place Results - Labs 09/05/22 07:36 09/05/22 07:36 Abnormal Lab Results - Last 24 Hours (Table) 09/04/22 09/04/22 09/04/22 Range/Units 17:31 17:31 17:31 WBC 12.0 H (3.8-10.6) k/uL Neutrophils # 9.5 H (1.3-7.7) k/uL Sodium (137-145) mmol/L Glucose 101 H (74-99) mg/dL Calcium (8.4-10.2) mg/dL ALT 43 H (4-34) U/L Urine Appearance Cloudy H (Clear) Urine Blood Large H (Negative) Ur Leukocyte Esterase Trace H (Negative) Urine RBC 63 H (0-5) /hpf Urine WBC 6 H (0-5) /hpf Ur Squamous Epith Cells 10 H (0-4) /hpf Urine Bacteria Rare H (None) /hpf Urine Mucus Rare H (None) /hpf 09/05/22 Range/Units 07:36 WBC (3.8-10.6) k/uL Neutrophils # (1.3-7.7) k/uL Sodium 136 L (137-145) mmol/L Glucose (74-99) mg/dL Calcium 7.8 L (8.4-10.2) mg/dL ALT (4-34) U/L Urine Appearance (Clear) Urine Blood (Negative) Ur Leukocyte Esterase (Negative) Urine RBC (0-5) /hpf Urine WBC (0-5) /hpf Ur Squamous Epith Cells (0-4) /hpf Urine Bacteria (None) /hpf Urine Mucus (None) /hpf Diabetes panel 09/04/22 09/05/22 Range/Units 17:31 07:36 Sodium 137 136 L (137-145) mmol/L Potassium 4.2 4.2 (3.5-5.1) mmol/L Chloride 104 107 (98-107) mmol/L Carbon Dioxide 24 24 (22-30) mmol/L BUN 15 13 (7-17) mg/dL Creatinine 0.83 0.74 (0.52-1.04) mg/dL Glucose 101 H 92 (74-99) mg/dL Calcium 9.1 7.8 L (8.4-10.2) mg/dL AST 30 (14-36) U/L ALT 43 H (4-34) U/L Alkaline Phosphatase 100 (38-126) U/L Total Protein 7.2 (6.3-8.2) g/dL Albumin 4.4 (3.5-5.0) g/dL Calcium panel 09/04/22 09/05/22 Range/Units 17:31 07:36 Calcium 9.1 7.8 L (8.4-10.2) mg/dL Albumin 4.4 (3.5-5.0) g/dL Pituitary panel 09/04/22 09/05/22 Range/Units 17:31 07:36 Sodium 137 136 L (137-145) mmol/L Potassium 4.2 4.2 (3.5-5.1) mmol/L Chloride 104 107 (98-107) mmol/L Carbon Dioxide 24 24 (22-30) mmol/L BUN 15 13 (7-17) mg/dL Creatinine 0.83 0.74 (0.52-1.04) mg/dL Glucose 101 H 92 (74-99) mg/dL Calcium 9.1 7.8 L (8.4-10.2) mg/dL Adrenal panel 09/04/22 09/05/22 Range/Units 17:31 07:36 Sodium 137 136 L (137-145) mmol/L Potassium 4.2 4.2 (3.5-5.1) mmol/L Chloride 104 107 (98-107) mmol/L Carbon Dioxide 24 24 (22-30) mmol/L BUN 15 13 (7-17) mg/dL Creatinine 0.83 0.74 (0.52-1.04) mg/dL Glucose 101 H 92 (74-99) mg/dL Calcium 9.1 7.8 L (8.4-10.2) mg/dL Total Bilirubin 0.6 (0.2-1.3) mg/dL AST 30 (14-36) U/L ALT 43 H (4-34) U/L Alkaline Phosphatase 100 (38-126) U/L Total Protein 7.2 (6.3-8.2) g/dL Albumin 4.4 (3.5-5.0) g/dL - Imaging CT scan - abdomen: image reviewed (8mm right-sided renal pelvis stone, 5 millimeter left-sided proximal ureteral stone. Bilateral hydronephrosis) Assessment and Plan Assessment: This is a 32-year-old female with evidence of a 5 mm left-sided proximal ureteral stone, and 8mm right-sided renal pelvis stone, having bilateral hydronephrosis. Admitted to the hospital due to intractable pain. Discussed with her given the persistent pain the option of a bilateral ureteroscopy with holmium laser. Discussed with her the risk which includes but not limited to bleeding, infection, injury to the ureter. -Or for bilateral ureteroscopy, holmium laser lithotripsy, stone basketing and stent insertion
[2022-09-05] MEDS ORDERED: SODIUM CHLORIDE 0.9% 50 ML with ceFAZolin 2,000 MG IV ONE ×2 (10:47)
[2022-09-05] MEDS ORDERED: LACTATED RINGERS 1,000 ML IV ONE (11:25)
[2022-09-05] MEDS ORDERED: HYDROmorphone 0.5 MG/0.5 ML SYRINGE IVP ONE ×2 (11:48→11:55)
--- NOTE | 2022-09-05 12:02 | P.OP ---
Date of Procedure: 09/05/22 Preoperative Diagnosis: Left ureteral stone, right renal stone Postoperative Diagnosis: Same Procedure(s) Performed: Bilateral ureteroscopy, holmium laser lithotripsy, stone basketing and stent insertion Implants: 6-Congolese by 22 cm stents bilaterally Anesthesia: ZEINA Surgeon: Joe Bautista Estimated Blood Loss (ml): 5 Pathology: other (bilateral kidney stones) Condition: stable Disposition: PACU Indications for Procedure: This is a 32-year-old female with evidence of a 5 mm left-sided proximal ureteral stone, and 8mm right-sided renal pelvis stone, having bilateral hydronephrosis. Admitted to the hospital due to intractable pain. Discussed with her given the persistent pain the option of a bilateral ureteroscopy with holmium laser. Discussed with her the risk which includes but not limited to bleeding, infection, injury to the ureter Operative Findings: Left-sided proximal ureteral stone, right-sided renal pelvis stone Description of Procedure: Patient brought to the operating room, general anesthesia was induced. She was prepped and draped in sterile fashion and placed in a dorsal lithotomy position. Cystoscopy fitted with 21-Congolese sheath was inserted per urethra, cystoscopy was performed which showed no abnormality within the bladder. Attention was then carried to the left ureteral orifice which was intubated with a sensor wire. Next under fluoroscopy 1113 Congolese access sheath was passed over the wire into the proximal ureter. Next a flexible ureteroscope was inserted through the access sheath, at this point a stone was encountered in the proximal ureter. Using the holmium laser the stone was dusted, repeat ureteroscopy and renoscopy showed no sizable fragments or injury to the kidney or the ureter. Pullback ureteroscopy was performed which showed no injury to the ureter or any ureteral stones, as the ureteroscope was withdrawn a sensor wire was advanced through. Next a ureteral stent was passed over the wire, the proximal curl was visualized on fluoroscopy and the distal curl was visualized using the cystoscope. At this time the cystoscopy was reinserted, the right ureteral orifice was intubated with a sensor wire. Next under fluoroscopy 1113 Congolese access sheath was passed over the wire and into the proximal ureter. Next the flexible ureteroscope was inserted through the access sheath, renoscopy was performed which showed a large stone in the renal pelvis. Using the holmium laser the stone was dusted, repeat renoscopy showed no injury to the kidney or any sizable fragments. Pullback ureteroscopy was performed which showed no injury to the ureter or any ureteral stones, as ureteroscope was withdrawn and a sensor wire was advanced through. Next a ureteral stent was passed over the wire, the proximal curl was visualized on fluoroscopy and the distal curl was visualized using the cystoscope. The bladder was emptied at the end of the case. Patient tolerated the procedure well was taken to recovery in stable condition
[2022-09-05] MEDS: ONDANSETRON 4 MG/2 ML VIAL IVP PRN ×2 (13:39→23:22)
--- NOTE | 2022-09-05 14:35 | FL ---
EXAMINATION TYPE: FL guidance operating room DATE OF EXAM: 09/05/2022 HISTORY: Fluoroscopy time 14 seconds of fluoroscopy provided. 3.5147 DAP. IMPRESSION: 1. Fluoroscopy time.
[2022-09-05] MEDS: HYDROmorphone 1 MG/ML 1 ML SYRINGE IVP PRN ×2 (17:02→23:21)
[2022-09-06] MEDS: SODIUM CHLORIDE 0.9% 1,000 ML IV SCH ×3 (05:02→17:12)
[2022-09-06] MEDS: HYDROmorphone 1 MG/ML 1 ML SYRINGE IVP PRN (07:20)
[2022-09-06] MEDS: ONDANSETRON 4 MG/2 ML VIAL IVP PRN (07:36)
[2022-09-06] MEDS: KETOROLAC 15 MG/ML 1 ML VIAL IVP PRN ×3 (08:31→22:15)
[2022-09-06] MEDS: TAMSULOSIN 0.4 MG CAP.ER.24H PO SCH (14:00)
[2022-09-06] MEDS: OXYBUTYNIN 10 MG TAB.ER.24 PO SCH (14:00)
--- NOTE | 2022-09-06 17:42 | P.PN ---
Subjective Progress Note Date: 09/06/22 Principal diagnosis: Bilateral ureteral calculi The patient underwent ureteroscopic removal of a left ureteral calculus and a right renal pelvic calculus yesterday. Ureteral stents were placed. Today, she reports considerable pain which is predominantly right sided, as well as nausea and vomiting refractory to Zofran. Objective - Vital Signs Vital signs: Vital Signs Temp 97.7 F 09/06/22 07:00 Pulse 72 09/06/22 07:00 Resp 16 09/06/22 07:00 BP 147/87 09/06/22 07:00 Pulse Ox 96 09/06/22 07:00 FiO2 Intake & Output 09/05/22 09/06/22 09/06/22 18:59 06:59 18:59 Intake Total 1318 Output Total 0 Balance 1318 Intake: IV 1200 Oral 118 Output: Estimated Blood Loss 0 Other: Voiding Method Toilet Toilet Toilet # Voids 3 1 - Constitutional General appearance: Present: cooperative, mild distress - Gastrointestinal General gastrointestinal: Present: soft. Absent: distended, organomegaly, tenderness - Psychiatric Psychiatric: Present: A&O x's 3, appropriate affect - Labs CBC & Chem 7: 09/05/22 07:36 09/05/22 07:36 Assessment and Plan Assessment: The patient underwent successful removal of a left ureteral calculus and right renal pelvic calculus yesterday. It is likely that she is currently experience symptoms related to that procedure and the associated stent placement. (1) Ureteral stone with hydronephrosis Current Visit: Yes Status: Acute Code(s): N13.2 - HYDRONEPHROSIS WITH RENAL AND URETERAL CALCULOUS OBSTRUCTION SNOMED Code(s): 16623076 Plan: The patient will continue to receive IV hydration. Analgesics and antibiotics will continue to be given as needed. Additionally, tamsulosin and oxybutynin chloride will be prescribed. A KUB x-ray will be obtained to confirm proper stent placement. Time with Patient: Greater than 30
--- NOTE | 2022-09-06 18:22 | XR ---
EXAMINATION TYPE: XR KUB DATE OF EXAM: 09/06/2022 COMPARISON: None INDICATION: Renal stones TECHNIQUE: Single view abdomen supine view FINDINGS: There is a normal bowel gas pattern. Psoas margins are normal. No organomegaly is present. Bilateral ureteral stents are present with double pigtail catheters. Renal stones not identified. IMPRESSION: 1. Bilateral ureteral stents
[2022-09-07] MEDS: SODIUM CHLORIDE 0.9% 1,000 ML IV SCH ×3 (02:46→18:02)
[2022-09-07] MEDS: KETOROLAC 15 MG/ML 1 ML VIAL IVP PRN ×2 (06:55→15:13)
[2022-09-07] MEDS: HYDROmorphone 1 MG/ML 1 ML SYRINGE IVP PRN (07:43)
[2022-09-07] MEDS: OXYBUTYNIN 10 MG TAB.ER.24 PO SCH ×2 (08:19→10:00)
[2022-09-07] MEDS: TAMSULOSIN 0.4 MG CAP.ER.24H PO SCH ×2 (08:19→10:00)
[2022-09-07] MEDS ORDERED: HYDROcodone/APAP 5-325MG 1 EACH TAB PO PRN (09:19)
[2022-09-07] MEDS: ONDANSETRON 4 MG/2 ML VIAL IVP PRN (13:07)
--- NOTE | 2022-09-07 13:55 | P.PN ---
Subjective Progress Note Date: 09/07/22 Principal diagnosis: Renal colic This is a 32 yo female with hx of 5 mm left sided proximal ureteral stone and 8 mm right sided renal pelvis stone causing bilateral hydronephrosis. She presented to the hospital with severe left flank pain associated with nausea and vomiting. She was in the hospital on August 14 right-sided flank pain, at that time a CT abdomen and pelvis was obtained which showed a 8mm right-sided UPJ stone. Repeat CT scan yesterday showed that the stone has moved to the renal pelvis, but there is still persistent hydronephrosis. She denies any dysuria or gross hematuria. Denies any fevers or chills. No previous history of kidney stones. On evaluation she continues to have left flank pain. 09/05 The patient underwent bilateral ureteroscopy, holmium laser lithotripsy, stone basketing, and bilateral stent insertion with Dr. Bautista. 09/06 The patient reports considerable pain which is predominantly right sided, as well as nausea and vomiting refractory to Zofran. Objective - Vital Signs Vital signs: Vital Signs Temp 98.2 F 09/07/22 06:22 Pulse 63 09/07/22 12:51 Resp 22 09/07/22 06:22 BP 143/85 09/07/22 12:51 Pulse Ox 97 09/07/22 12:51 FiO2 Intake & Output 09/06/22 09/07/22 09/07/22 18:59 06:59 18:59 Intake Total 236 118 Balance 236 118 Intake: Oral 236 118 Other: Voiding Method Toilet Toilet Toilet # Voids 5 5 - Exam General: Well developed, well nourished. No acute distress. HEENT: Head is atraumatic, normocephalic. Lungs: Respirations even and nonlabored. On RA. Abdomen/GI: Soft, non-distended. No guarding, rigidity, or abdominal tenderness. Skin: Warm and dry Neurologic: Alert and oriented 3, CN II-XII grossly intact. No focal deficits. Psychiatric: Emotional - Labs CBC & Chem 7: 09/05/22 07:36 09/05/22 07:36 Assessment and Plan Assessment: The patient was lying flat in bed and appearing very emotional. She reports persistent right flank pain with associated nausea and vomiting. KUB x-ray obtained 4/10/23 shows stents in good position. It is likely that she is currently experience symptoms related to that procedure and the associated stent placement. Dr. Bautista offered to remove her ureteral stents in the office later this week, but the patient lacks transportation. Therefore, this will be performed swelling the operating room by Dr. Morse. The patient will continue to receive IV hydration. Analgesics and antibiotics will continue to be given as needed. (1) Ureteral stone with hydronephrosis Current Visit: Yes Status: Acute Code(s): N13.2 - HYDRONEPHROSIS WITH RENAL AND URETERAL CALCULOUS OBSTRUCTION SNOMED Code(s): 23494697 Plan: - Continue Flomax - Continue Ditropan - Continue Toradol - Add Chauncey - Begin Ancef empirically - Continue Dilaudid for breakthrough/severe pain - Continue IV hydration - Continue antiemetics - NPO after midnight - Cystoscopy with bilateral ureteral stent removal tomorrow Impression and plan of care have been directed as dictated by the signing physician. Hoa Dove nurse practitioner acting as scribe for signing physician. Hoa Dove [facility] Palliative Care/Urology Spectralink [id number] Email: [email or web address] I have personally seen and examined the patient, reviewed the documentation and agree with the assessment and plan as written. Number of minutes spent on the visit: 25. Tod Morse MD
[2022-09-07 14:46] VITALS: BP 123/79; PULSE 70; RESP 17; TEMP 97.8
--- NOTE | 2022-09-07 20:05 | P.DS ---
Providers Date of admission: 09/04/22 20:38 Expected date of discharge: 09/07/22 Attending physician: Joe Bautista MD Primary care physician: Stated None - Discharge Diagnosis(es) (1) Ureteral stone with hydronephrosis Status: Acute Hospital Course: This is a 32 yo female with hx of 5 mm left sided proximal ureteral stone and 8 mm right sided renal pelvis stone causing bilateral hydronephrosis. She presented to the hospital with severe left flank pain associated with nausea and vomiting. She was in the hospital on August 14 right-sided flank pain, at that time a CT abdomen and pelvis was obtained which showed a 8mm right-sided UPJ stone. Repeat CT scan prior to this admission showed that the stone has moved to the renal pelvis, but there is still persistent hydronephrosis. She denies any dysuria or gross hematuria. Denies any fevers or chills. No previous history of kidney stones. On evaluation she continues to have left flank pain. Therefore, on the day of admission, she underwent bilateral ureteroscopy with laser lithotripsy and stent placement. Unfortunately, she continued to experience significant pain which was predominantly right-sided, associated with nausea and vomiting. She was treated with parenteral analgesics and antibiotics, in addition to IV hydration. It was presumed that she was likely experiencing stent pain, and she was thus scheduled to undergo cystoscopy with bilateral ureteral stent removal on 09/08/2022. However, due to a family emergency she requested to be discharged home the evening of 09/07/2022. She will undergo office cystoscopy with stent removal later this week. Procedures: Cystoscopy, bilateral ureteroscopy with Holmium laser lithotripsy and stone basketing, bilateral ureteral stent insertion on 09/05/2022. Patient Condition at Discharge: Stable Plan - Discharge Summary New Discharge Prescriptions: New Cephalexin [Keflex] 250 mg PO Q8HR #9 capsule HYDROcodone/APAP 5-325MG [[place] 5-325] 1 - 2 tab PO Q4HR PRN #6 tab PRN Reason: Severe Pain (Scale 7 To 10) Oxybutynin Chloride [Oxybutynin Chloride ER] 10 mg PO DAILY #7 tab Tamsulosin [Flomax] 0.4 mg PO DAILY #7 cap Ketorolac [Toradol] 10 mg PO Q6HR PRN #10 tab PRN Reason: Pain Discharge Medication List Cephalexin [Keflex] 250 mg PO Q8HR #9 capsule 09/07/22 [Rx] HYDROcodone/APAP 5-325MG [[place] 5-325] 1 - 2 tab PO Q4HR PRN #6 tab 09/07/22 [Rx] Ketorolac [Toradol] 10 mg PO Q6HR PRN #10 tab 09/07/22 [Rx] Oxybutynin Chloride [Oxybutynin Chloride ER] 10 mg PO DAILY #7 tab 09/07/22 [Rx] Tamsulosin [Flomax] 0.4 mg PO DAILY #7 cap 09/07/22 [Rx] Follow up Appointment(s)/Referral(s): Joe Bautista MD [STAFF PHYSICIAN] - 1 Week None,Stated [Primary Care Provider] - 1-2 days Patient Instructions/Handouts: *Surgery [facility] - Cystoscopy Discharge Instructions, Ureteral Stent Placement (DC) Activity/Diet/Wound Care/Special Instructions: Please call Urology office in morning to schedule appointment with Dr. Bautista for office cystoscopy with stent removal. Discharge Disposition: HOME SELF-CARE
== END 2022-09-07 19:03 | disposition home or self-care (01) | DRG 446 ==
LOC: EC 16:31 → OBSVTOIN 20:38 → 6NMEDSUR 20:38
PROVIDERS: ADMIT Urology; ATTEND Urology
PROC: 0TC38ZZ Extirpation of Matter from Right Kidney Pelvis, Via Natural or Artificial Opening Endoscopic (ICD-10-PCS; principal; 2022-09-04)
PROC: 0TC78ZZ Extirpation of Matter from Left Ureter, Via Natural or Artificial Opening Endoscopic (ICD-10-PCS; 2022-09-04)
PROC: 0T788DZ Dilation of Bilateral Ureters with Intraluminal Device, Via Natural or Artificial Opening Endoscopic (ICD-10-PCS; 2022-09-04)
DX: N13.2 Hydronephrosis with renal and ureteral calculous obstruction (principal); F17.210 Nicotine dependence, cigarettes, uncomplicated; R11.2 Nausea with vomiting, unspecified; Z80.49 Family history of malignant neoplasm of other genital organs; Z87.442 Personal history of urinary calculi
CPT/HCPCS: 36415; 74018; 74177; 80048; 80053; 81001; 81025; 82365; 83690; 85025

== ENCOUNTER 2022-10-20 08:38 | Inpatient (IN) | payer OTHER ==
[2022-10-20] MEDS ORDERED: SODIUM CHLORIDE 0.9% 1,000 ML IV STA (08:55)
[2022-10-20] MEDS ORDERED: HYDROmorphone 0.5 MG/0.5 ML SYRINGE IVP STA (08:56)
[2022-10-20] MEDS ORDERED: ONDANSETRON 4 MG/2 ML VIAL IVP STA (08:56)
[2022-10-20 09:18] LABS: Basophils % (A) 0 %; Eosinophils # (A) 0.3 k/uL (0-0.7); Eosinophils % (A) 3 %; HCT 41.5 % (34.0-46.0); HGB 14.3 gm/dL (11.4-16.0); Lymphocytes # (A) 1.9 k/uL (1.0-4.8); Lymphocytes % (A) 16 %; MCH 29.7 pg (25.0-35.0); MCHC 34.6 g/dL (31.0-37.0); MCV 85.8 fL (80.0-100.0); Mean Platelet Volume 7.9; Monocytes # (A) 0.4 k/uL (0-1.0); Monocytes % (A) 3 %; Neutrophils # (A) 8.8 k/uL (1.3-7.7); Neutrophils % (A) 76 %; Platelet Count 251 k/uL (150-450); RBC 4.84 m/uL (3.80-5.40); RDW 12.2 % (11.5-15.5); WBC 11.5 k/uL (3.8-10.6)
[2022-10-20 09:26] LABS: ALT 19 U/L (4-34); AST 25 U/L (14-36); African American GFR (CKD) >90 (>60 ml/min/1.73 sqM); Alkaline Phosphatase 95 U/L (38-126); Anion Gap 9 mmol/L; Blood Urea Nitrogen 15 mg/dL (7-17); Calcium 8.3 mg/dL (8.4-10.2); Carbon Dioxide 21 mmol/L (22-30); Chloride 107 mmol/L (98-107); Glucose 109 mg/dL (74-99); Lipase 32 U/L (23-300); Non-African American GFR(CKD) >90 (>60 ml/min/1.73 sqM); Sodium 137 mmol/L (137-145); Total Bilirubin 0.7 mg/dL (0.2-1.3)
--- NOTE | 2022-10-20 09:32 | ED ---
General Adult HPI - General Chief complaint: Urogenital Stated complaint: Flank pain Time Seen by Provider: 10/20/22 08:41 Source: patient, EMS, RN notes reviewed Mode of arrival: EMS Limitations: no limitations - History of Present Illness Initial comments: 32-year-old female presents emergency Department with chief complaint of flank pain. Patient states that she had stones removed bilaterally and states that she had stents states he stents removed in middle of August. Patient states she has not felt water sent states now the pain is increasing. She contacted her urologist who recommended come emergency department 3 days ago. Patient does with nausea and vomiting states pain has gradually worsened denies fevers chills no chest pain - Related Data Home Medications Medication Instructions Recorded Confirmed No Known Home Medications 10/20/22 10/20/22 Allergies Allergy/AdvReac Type Severity Reaction Status Date / Time No Known Allergies Allergy Verified 10/20/22 08:55 Review of Systems ROS Statement: Those systems with pertinent positive or pertinent negative responses have been documented in the HPI. ROS Other: All systems not noted in ROS Statement are negative. Past Medical History Past Medical History: No Reported History Additional Past Medical History / Comment(s): STATES ABDOMINAL PAIN FROM GALL STONES. Kidney stones History of Any Multi-Drug Resistant Organisms: None Reported Past Surgical History: No Surgical Hx Reported Additional Past Surgical History / Comment(s): Gallbladder removed; "kidney stents" Past Anesthesia/Blood Transfusion Reactions: No Reported Reaction Additional Past Anesthesia/Blood Transfusion Reaction / Comment(s): NO ANESTHESIA HX.- STATES THEY HAD DIFFICULTY INSERTING EPIDURAL FOR CHILDBIRTH Past Psychological History: No Psychological Hx Reported Smoking Status: Current every day smoker Past Alcohol Use History: None Reported Past Drug Use History: Marijuana - Past Family History Father Family Medical History: No Reported History Mother Family Medical History: Cancer Additional Family Medical History / Comment(s): CERVICAL CANCER General Exam Limitations: no limitations General appearance: alert, in no apparent distress Head exam: Present: atraumatic, normocephalic, normal inspection Eye exam: Present: normal appearance, PERRL, EOMI. Absent: scleral icterus, conjunctival injection, periorbital swelling ENT exam: Present: normal exam, normal oropharynx, mucous membranes moist Neck exam: Present: normal inspection, full ROM. Absent: tenderness, meningismus, lymphadenopathy Respiratory exam: Present: normal lung sounds bilaterally. Absent: respiratory distress, wheezes, rales, rhonchi, stridor Cardiovascular Exam: Present: regular rate, normal rhythm, normal heart sounds. Absent: systolic murmur, diastolic murmur, rubs, gallop, clicks GI/Abdominal exam: Present: soft, tenderness, normal bowel sounds. Absent: distended, guarding, rebound, rigid Back exam: Present: CVA tenderness (L). Absent: CVA tenderness (R) Neurological exam: Present: alert Skin exam: Present: warm, dry, intact, normal color. Absent: rash Course Vital Signs 10/20/22 10/20/22 10/20/22 08:40 09:44 11:34 Temperature 98.4 F Pulse Rate 72 52 L 57 L Respiratory 20 16 16 Rate Blood Pressure 150/111 147/85 124/70 O2 Sat by Pulse 97 98 100 Oximetry Medical Decision Making - Medical Decision Making Was pt. sent in by a medical professional or institution (, PA, SEWAGE PLANT OPERATOR, urgent care, hospital, or jail...) When possible be specific @ -Urologist Did you speak to anyone other than the patient for history (EMS, parent, family, police, friend...)? What history was obtained from this source @ -No Did you review nursing and triage notes (agree or disagree)? Why? @ -I reviewed and agree with nursing and triage notes Were old charts reviewed (outside hosp., previous admission, EMS record, old EKG, old radiological studies, urgent care reports/EKG's, jail records)? Report findings @ -Reviewed prior CT, urology consults and procedures Differential Diagnosis (chest pain, altered mental status, abdominal pain women, abdominal pain men, vaginal bleeding, weakness, fever, dyspnea, syncope, headache, dizziness, GI bleed, back pain, seizure, CVA, palpatations, mental health, musculoskeletal)? @ -Differential Abdominal Pain Women: Appendicitis, Cholecystitis, diverticulosis, ischemic bowel, pancreatitis, hepatitis, UTI, gastroenteritis, AAA, incarcerated hernia, bowel obstruction, constipation, inflammatory bowel, hepatitis, peptic ulcer disease, splenic infarction, perforated viscus, vulvitis, ovarian torsion, PID, kidney stone, placenta abruption, this is not meant to be an all-inclusive list EKG interpreted by me (3pts min.). @ -None X-rays interpreted by me (1pt min.). @ -None done CT interpreted by me (1pt min.). @ -CT abdomen and pelvis shows left reveal stenosis or stricture, delayed excretion U/S interpreted by me (1pt. min.). @ -None done What testing was considered but not performed or refused? (CT, X-rays, U/S, labs)? Why? @ -None What meds were considered but not given or refused? Why? @ -None Did you discuss the management of the patient with other professionals (professionals i.e. , PA, SEWAGE PLANT OPERATOR, lab, RT, psych nurse, social work professor, head of conservation, teacher, operations officer, nurse case management)? Give summary @ -[Urologist Dr. woo who recommended patient be admitted patient will be nothing by mouth after midnight patient may require stenting of the left side Was smoking cessation discussed for >3mins.? @ -No Was critical care preformed (if so, how long)? @ -No Were there social determinants of health that impacted care today? How? (Homelessness, low income, unemployed, alcoholism, drug addiction, transportation, low edu. Level, literacy, decrease access to med. care, detention, rehab)? @ -No Was there de-escalation of care discussed even if they declined (Discuss DNR or withdrawal of care, Hospice)? DNR status @ -No What co-morbidities impacted this encounter? (DM, HTN, Smoking, COPD, CAD, Cancer, CVA, ARF, Chemo, Hep., AIDS, mental health diagnosis, sleep apnea, morbid obesity)? @ -None Was patient admitted / discharged? Hospital course, mention meds given and route, prescriptions, significant lab abnormalities, going to OR and other pertinent info. @ -Admitted secondary to left ureteral cirrhosis/stricture showing hydronephrosis and delayed excretion on CT patient admitted to urologist pending possible stent placement Undiagnosed new problem with uncertain prognosis? @ -No Drug Therapy requiring intensive monitoring for toxicity (Heparin, Nitro, Insulin, Cardizem)? @ -No Were any procedures done? @ -No Diagnosis/symptom? @ -Left ureteral stricture/stenosis Acute, or Chronic, or Acute on Chronic? @ -Acute Uncomplicated (without systemic symptoms) or Complicated (systemic symptoms)? @ -Uncomplicated Side effects of treatment? @ -No Exacerbation, Progression, or Severe Exacerbation? @ -No Poses a threat to life or bodily function? How? (Chest pain, [place], AL, pneumonia, PE, COPD, DKA, ARF, appy, cholecystitis, CVA, Diverticulitis, Homicidal, Suicidal, threat to staff... and all critical care pts) @ -No - Lab Data Result diagrams: 10/20/22 08:57 10/20/22 08:57 Lab Results 10/20/22 10/20/22 Range/Units 08:57 08:57 WBC 11.5 H (3.8-10.6) k/uL RBC 4.84 (3.80-5.40) m/uL Hgb 14.3 (11.4-16.0) gm/dL Hct 41.5 (34.0-46.0) % MCV 85.8 (80.0-100.0) fL MCH 29.7 (25.0-35.0) pg MCHC 34.6 (31.0-37.0) g/dL RDW 12.2 (11.5-15.5) % Plt Count 251 (150-450) k/uL MPV 7.9 Neutrophils % 76 % Lymphocytes % 16 % Monocytes % 3 % Eosinophils % 3 % Basophils % 0 % Neutrophils # 8.8 H (1.3-7.7) k/uL Lymphocytes # 1.9 (1.0-4.8) k/uL Monocytes # 0.4 (0-1.0) k/uL Eosinophils # 0.3 (0-0.7) k/uL Basophils # 0.0 (0-0.2) k/uL Sodium 137 (137-145) mmol/L Potassium 4.5 (3.5-5.1) mmol/L Chloride 107 (98-107) mmol/L Carbon Dioxide 21 L (22-30) mmol/L Anion Gap 9 mmol/L BUN 15 (7-17) mg/dL Creatinine 0.71 (0.52-1.04) mg/dL Est GFR (CKD-EPI)AfAm >90 (>60 ml/min/1.73 sqM) Est GFR (CKD-EPI)NonAf >90 (>60 ml/min/1.73 sqM) Glucose 109 H (74-99) mg/dL Calcium 8.3 L (8.4-10.2) mg/dL Total Bilirubin 0.7 (0.2-1.3) mg/dL AST 25 (14-36) U/L ALT 19 (4-34) U/L Alkaline Phosphatase 95 (38-126) U/L Total Protein 7.0 (6.3-8.2) g/dL Albumin 4.0 (3.5-5.0) g/dL Lipase 32 (23-300) U/L Disposition Clinical Impression: Hydronephrosis, Ureteral stenosis, left Disposition: ADMITTED IP TO THIS HOSP Condition: Fair Referrals: None,Stated [Primary Care Provider] - 1-2 days Time of Disposition: 11:28
[2022-10-20 09:56] LABS: Potassium 4.5 mmol/L (3.5-5.1)
--- NOTE | 2022-10-20 10:26 | CT ---
EXAMINATION TYPE: CT abdomen pelvis w con DATE OF EXAM: 10/20/2022 HISTORY: Abdominal pain, past stenting. CT DLP: 2040.9mGycm Automated Exposure Control for Dose Reduction was Utilized. CONTRAST: CT scan of the abdomen and pelvis is performed without oral but with IV Contrast, patient injected wi th 100 mL of Isovue 300. COMPARISON: Prior CT September 04, 2022 FINDINGS: LUNG BASES: No significant abnormality is appreciated. LIVER/GB: Cholecystectomy clip is redemonstrated. Liver remains diffusely low dense consistent with f atty infiltrative hepatocellular disease. PANCREAS: No significant abnormality is seen. SPLEEN: No significant abnormality is seen. ADRENALS: No significant abnormality is seen. KIDNEYS: Satisfactory cortical medullary uptake and excretion in the right kidney is redemonstrated. Left side shows at least delayed excretion and persistent moderate left-sided hydronephrosis. There a re suspected to calculi in the left kidney coronal image 63 and 73 measuring between 1 to 2 mm and rao spected 2 mm calculus upper pole right kidney coronal image 73. There is some ill-defined fluid and f at stranding surrounding the left kidney and proximal left ureter with transition to nondilated mid t o distal ureter near axial image 46. Prior visualized obstructing ureteral calculus is not clearly se en. BOWEL: Normal-appearing appendix. UTERUS/ADNEXA: Anteverted uterus. LYMPH NODES: No greater than 1cm abdominal or pelvic lymph nodes are appreciated. OSSEOUS STRUCTURES: Suspect limbus vertebrae anterior superior L3 endplate. OTHER: No significant additional abnormality is seen. IMPRESSION: Persistent mild/moderate left-sided hydronephrosis and at least delayed excretion despite now nonvisualized or successfully treated obstructing 4 to 5 mm proximal left ureter calculus. Worse josué fluid and fat stranding at this level is noted. Consider underlying ureter stricture or stenosis . Advise urology assessment.
[2022-10-20] MEDS ORDERED: NALOXONE 0.4 MG/ML 1 ML VIAL IV PRN (11:20)
[2022-10-20] MEDS ORDERED: ACETAMINOPHEN TAB 325 MG TAB PO PRN (11:20)
[2022-10-20] MEDS: SODIUM CHLORIDE 0.9% 1,000 ML IV SCH (11:34)
[2022-10-20] MEDS: HYDROmorphone 0.5 MG/0.5 ML SYRINGE IVP PRN ×2 (14:07→16:31)
[2022-10-20] MEDS: ONDANSETRON 4 MG/2 ML VIAL IVP PRN ×2 (14:07→16:26)
[2022-10-20] MEDS: KETOROLAC 15 MG/ML 1 ML VIAL IVP PRN (19:51)
[2022-10-21] MEDS: KETOROLAC 15 MG/ML 1 ML VIAL IVP PRN ×4 (01:34→17:55)
[2022-10-21] MEDS: SODIUM CHLORIDE 0.9% 1,000 ML IV SCH ×2 (05:06→09:07)
--- NOTE | 2022-10-21 18:36 | P.GSHP ---
History of Present Illness H&P Date: 10/21/22 Chief Complaint: left hydronephrosis This is a 32 yo female that presents to the hospital with left sided flank pain with radiation to the groin. She has underwent bilateral URS with holmium laser on 09/05 and stent was removed one week post surgery. Indicates pain ongoing for the past few weeks, but there is worsening of pain over the past few days. Denies any dysuria or gross hematuria. Denies any fever and chills. On admission underwent a CT abdomen which showed evidence of left sided hydronephrosis with delayed drainage from the left kidney. No evidence of any obstructive stones on CT. Past Medical History Past Medical History: No Reported History Additional Past Medical History / Comment(s): STATES ABDOMINAL PAIN FROM GALL STONES. Kidney stones History of Any Multi-Drug Resistant Organisms: None Reported Past Surgical History: No Surgical Hx Reported Additional Past Surgical History / Comment(s): Gallbladder removed; "kidney stents" Past Anesthesia/Blood Transfusion Reactions: No Reported Reaction Additional Past Anesthesia/Blood Transfusion Reaction / Comment(s): NO ANESTHESIA HX.- STATES THEY HAD DIFFICULTY INSERTING EPIDURAL FOR CHILDBIRTH Past Psychological History: No Psychological Hx Reported Smoking Status: Current every day smoker Past Alcohol Use History: None Reported Additional Past Alcohol Use History / Comment(s): SMOKES 2-3 CIGARETTES /DAY. SMOKING FOR 9-10 YEARS. Past Drug Use History: Marijuana - Past Family History Father Family Medical History: No Reported History Mother Family Medical History: Cancer Additional Family Medical History / Comment(s): CERVICAL CANCER Medications and Allergies Home Medications Medication Instructions Recorded Confirmed Type No Known Home Medications 10/20/22 10/20/22 History Allergies Allergy/AdvReac Type Severity Reaction Status Date / Time No Known Allergies Allergy Verified 10/20/22 08:55 Surgical - Exam Vital Signs Temp Pulse Resp BP Pulse Ox 98.4 F 72 20 150/111 97 10/20/22 08:40 10/20/22 08:40 10/20/22 08:40 10/20/22 08:40 10/20/22 08:40 - General no distress, no pain - Eyes normal ocular movement, no pale - ENT normal nares, normal mucosa - Respiratory normal expansion, normal respiratory effort - Abdomen Abdomen: tender (left flank ) - Psychiatric oriented to time, oriented to person, oriented to place Results - Labs 10/20/22 08:57 10/20/22 08:57 Assessment and Plan Assessment: This is a 32 yo female with left sided symptomatic hydronephrosis following bilateral URS with holmium laser on 09/05. Admitted to the hospital with flank pain. Discussed with her given the pain and hydronephrosis recommend proceeding with stent insertion. Patient has poor tolerance for stents but aware given the hydronephrosis and pain I do recommend proceeding with stent insertion. Risk, benefit and rationale of surgery was discussed in details -NPO past MN -OR for cystoscopy and left stent insertion
[2022-10-22] MEDS: KETOROLAC 15 MG/ML 1 ML VIAL IVP PRN ×2 (00:24→06:40)
[2022-10-22 04:02] LABS: Appearance,Urine Clear (Clear); Bilirubin,Urine Negative (Negative); Blood,Urine Negative (Negative); Color,Urine Light Yellow; Glucose,Urine (UA) Negative (Negative); Ketones,Urine Negative (Negative); Leukocyte Esterase,Urine Negative (Negative); Nitrite,Urine Negative (Negative); PH, Urine 7.5 (5.0-8.0); Protein,Urine Negative (Negative); Specific Gravity,Urine 1.008 (1.001-1.035); Urobilinogen,Urine <2.0 mg/dL (<2.0)
[2022-10-22] MEDS: SODIUM CHLORIDE 0.9% 1,000 ML IV SCH ×3 (07:55→15:23)
[2022-10-22] MEDS ORDERED: LACTATED RINGERS 1,000 ML IV ONE (12:48)
--- NOTE | 2022-10-22 12:48 | P.PN ---
Subjective Progress Note Date: 10/22/22 No acute overnight event, still having flank pain Objective - Vital Signs Vital signs: Vital Signs Temp 98.5 F 10/22/22 11:47 Pulse 61 10/22/22 11:47 Resp 18 10/22/22 11:47 BP 130/90 10/22/22 11:47 Pulse Ox 99 10/22/22 11:47 FiO2 Intake & Output 10/21/22 10/22/22 10/22/22 18:59 06:59 18:59 Other: Voiding Method Toilet Toilet # Voids 4 - Constitutional General appearance: Present: no acute distress - Gastrointestinal General gastrointestinal: Present: tenderness (left flank ). Absent: distended - Psychiatric Psychiatric: Present: A&O x's 3 - Labs CBC & Chem 7: 10/20/22 08:57 10/20/22 08:57 Assessment and Plan Assessment: This is a 32 yo female with left sided symptomatic hydronephrosis following bilateral URS with holmium laser on 09/05. Admitted to the hospital with flank pain. Discussed with her given the pain and hydronephrosis recommend proceeding with stent insertion. Patient has poor tolerance for stents but aware given the hydronephrosis and pain I do recommend proceeding with stent insertion. This morning continues to have flank pain -Keep NPO -OR for cystoscopy and left stent insertion
[2022-10-22] MEDS: ONDANSETRON 4 MG/2 ML VIAL IVP PRN (13:00)
[2022-10-22] MEDS ORDERED: MIDAZOLAM 2 MG/2 ML VIAL IVP ONE (13:01)
[2022-10-22] MEDS ORDERED: HYDROmorphone (PF) 1 MG/ML ONE (13:21)
[2022-10-22] MEDS ORDERED: PROPOFOL 10 MG/ML 20 ML VIAL IV ONE (13:21)
[2022-10-22] MEDS ORDERED: MIDAZOLAM 2 MG/2 ML VIAL ONE (13:21)
[2022-10-22] MEDS ORDERED: SUCCINYLCHOLINE CHLORIDE 200 MG/10 ML VIAL IV ONE (13:21)
[2022-10-22] MEDS ORDERED: fentaNYL (PF) 50 MCG/ML 2 ML AMP ONE (13:21)
[2022-10-22] MEDS ORDERED: SODIUM CHLORIDE 0.9% 50 ML with ceFAZolin 2,000 MG IV ONE ×2 (13:23)
[2022-10-22] MEDS ORDERED: IOHEXOL 350 MG/ML 50 ML in EMPTY BAG 1 BAG IRRIGATION ONE (13:53)
[2022-10-22 14:27] VITALS: TEMP 97
[2022-10-22] MEDS ORDERED: SODIUM CHLORIDE 0.9% 1,000 ML IV ONE (14:37)
[2022-10-22 14:49] VITALS: RESP 18
[2022-10-22 16:49] VITALS: BP 161/91; PULSE 95
--- NOTE | 2022-10-23 05:23 | FL ---
EXAMINATION TYPE: FL urography retrograde DATE OF EXAM: 10/22/2022 COMPARISON: CT abdomen and pelvis 2 days ago HISTORY: Left-sided kidney stone TECHNIQUE: Fluoroscopy. FINDINGS: Fluoroscopic guidance was provided during left ureter stent procedure performed by Dr. Kyle hunt. A total of 2 minutes 49 seconds of fluoroscopic time was utilized during the procedure and 5 sp ot images was acquired. Total dose area product (DAP) in uGy*m?, mGy*cm? (or similar): 3.09. IMPRESSION: As Above.
--- NOTE | 2022-10-26 08:50 | P.OP ---
Date of Procedure: 10/26/22 Preoperative Diagnosis: Left-sided hydronephrosis Postoperative Diagnosis: Same Procedure(s) Performed: Cystoscopy, left retrograde pyelogram, ureteroscopy and stent insertion Implants: 6-Guamanian by 28 cm stent in the left ureter Anesthesia: ZEINA Surgeon: Joe Bautista Estimated Blood Loss (ml): 1 Pathology: none sent Condition: stable Disposition: PACU Indications for Procedure: This is a 32 yo female with left sided symptomatic hydronephrosis following bilateral URS with holmium laser on 09/05. Admitted to the hospital with flank pain. Discussed with her given the pain and hydronephrosis recommend proceeding with stent insertion. Patient has poor tolerance for stents but aware given the hydronephrosis and pain I do recommend proceeding with stent insertion. Bleeding, infection, persistent obstruction was discussed. She understood all the risk and agreed to proceed Operative Findings: Left proximal ureteral kinking and narrowing, Description of Procedure: Patient brought to the operating room, general anesthesia was induced. She was prepped and draped in sterile fashion and placed in dorsal lithotomy position. Cystoscopy fitted with a 21-Guamanian sheath was inserted per urethra, cystoscopy was performed which showed no abnormality within the bladder. Next the left ureteral orifice was intubated with an open-ended catheter, retrograde pyelogram was performed which showed no filling defect along the course of the mid and distal ureter. At the level of the proximal ureter there was an abrupt transition point with minimal contrast seen going up past the point of transition, at this time, I advance a sensor wire through the catheter, but resistance was met at the point of transition, at this point the cystoscope was withdrawn with the wire in place. Next an 1113 Guamanian access sheath was passed over the wire and the access sheath was advanced into the proximal ureter's staying distal to the location of obstruction. This time the flexible ureteroscope was inserted through the access sheath, ureteroscopy was performed which showed narrowing at the proximal ureter, there appeared to be kinking of the ureter at that level. I was able to advance a sensor wire through the narrowing and into the collecting system. I was not able to advance the scope past the narrowing. At this time pullback ureteroscopy was performed showed no injury to the ureter or any evidence of ureteral stones. Next I passed a 7- Guamanian by 24 cm stent over the wire, the curl of the stent appeared to be distal to the point of obstruction. At this time the stent was removed and a wire was readvanced through at this time the wire was reconfirmed to be in the collecting system. Next a 6-Guamanian by 28 cm stent was passed over the wire and the curl was seen in the collecting system on fluoroscopy. The distal curl was seen in the bladder. There was a hydronephrotic drip seen from the stent. The bladder was emptied at the end of the case. Patient tolerated procedure well was taken to recovery in stable condition. The plan would be for the patient to follow-up as an outpatient for stent removal in 4 weeks
--- NOTE | 2022-10-26 08:52 | P.DS ---
Providers Date of admission: 10/20/22 11:32 Attending physician: Joe Bautista MD Primary care physician: Stated None Hospital Course: This is a 32 yo female with left sided symptomatic hydronephrosis following bilateral URS with holmium laser on 09/05. Admitted to the hospital with flank pain. Patient had persistent flank pain, required IV pain medications for pain control. Patient was taken to the OR on October 22 for stent insertion. Please see dated October 22 for surgery detail. Had significant improvement of pain following stent insertion. She was discharged home on October 22, she will follow up in 4 weeks for stent removal. At time of discharge she was tolerating a diet, ambulating , and pain was controlled Patient Condition at Discharge: Fair Plan - Discharge Summary Discharge Rx Participant: Yes New Discharge Prescriptions: New Cephalexin [Keflex] 500 mg PO Q8HR #15 cap Ketorolac [Toradol] 10 mg PO Q6HR PRN #15 tab PRN Reason: Pain Discharge Medication List Cephalexin [Keflex] 500 mg PO Q8HR #15 cap 10/22/22 [Rx] Ketorolac [Toradol] 10 mg PO Q6HR PRN #15 tab 10/22/22 [Rx] Follow up Appointment(s)/Referral(s): Joe Bautista MD [STAFF PHYSICIAN] - 4 Weeks None,Stated [Primary Care Provider] - 1-2 days Patient Instructions/Handouts: Cephalexin (By mouth), Ketorolac (By mouth), Hydronephrosis (DC), Cystoscopy (DC), Ureteral Stent Placement (DC) Discharge Disposition: HOME SELF-CARE
== END 2022-10-22 18:38 | disposition home or self-care (01) | DRG 465 ==
LOC: EC 08:38 → 5NMEDONC 11:32
PROVIDERS: ADMIT Urology; ATTEND Urology
PROC: 0T778DZ Dilation of Left Ureter with Intraluminal Device, Via Natural or Artificial Opening Endoscopic (ICD-10-PCS; principal; 2022-10-22 15:55)
DX: N13.30 Unspecified hydronephrosis (principal); F17.210 Nicotine dependence, cigarettes, uncomplicated; Z87.442 Personal history of urinary calculi
CPT/HCPCS: 36415; 74177; 74420; 80053; 81003; 81025; 83690; 85025; 96361; 96374; 96375; 96376; 99285

== ENCOUNTER 2024-10-03 23:14 | Inpatient (IN) | payer OTHER ==
[2024-10-04] MEDS ORDERED: CARBOPROST TROMETHAMINE 250 MCG/ML 1 ML AMP IM PRN (00:40)
[2024-10-04] MEDS ORDERED: OXYTOCIN 10 UNIT/ML 1 ML VIAL IM PRN (00:40)
[2024-10-04] MEDS ORDERED: TERBUTALINE 1 MG/ML VIAL SQ PRN (00:40)
[2024-10-04] MEDS ORDERED: LIDOCAINE 0.5% (PF) 5 MG/ML (50 ML SDV) SQ PRN (00:40)
[2024-10-04] MEDS ORDERED: miSOPROStoL 200 MCG TAB RECTAL PRN (00:40)
[2024-10-04] MEDS: LACTATED RINGERS 1,000 ML IV SCH (00:40)
[2024-10-04] MEDS ORDERED: miSOPROStoL 200 MCG TAB PO PRN (00:40)
[2024-10-04] MEDS ORDERED: METHYLERGONOVINE 0.2 MG/ML 1 ML AMP IM PRN (00:40)
[2024-10-04] MEDS ORDERED: TRANEXAMIC 1,000 MG/100ML-NACL 1,000 MG in EMPTY BAG 1 BAG IV PRN (00:40)
[2024-10-04 00:53] LABS: Basophils # (A) 0.04 10*3/uL (0.00-0.10); Basophils % (A) 0.3 %; Eosinophils # (A) 0.18 10*3/uL (0.04-0.35); Eosinophils % (A) 1.2 %; HCT 40.3 % (37.2-46.3); HGB 14.4 g/dL (12.0-15.0); Lymphocytes # (A) 3.04 10*3/uL (0.90-5.00); Lymphocytes % (A) 19.7 %; MCHC 35.7 g/dL (32.0-37.0); MCV 89.6 fL (80.0-97.0); Mean Platelet Volume 10.7 fL (9.5-12.2); Monocytes # (A) 0.85 10*3/uL (0.20-1.00); Monocytes % (A) 5.5 %; Neutrophils # (A) 11.18 10*3/uL (1.80-7.70); Neutrophils % (A) 72.5 %; Platelet Count 204 10*3/uL (140-440); RDW 11.9 % (11.5-14.5); WBC 15.41 10*3/uL (4.50-10.00)
[2024-10-04] MEDS ORDERED: fentaNYL (PF) 50 MCG/ML 5 ML AMP ONE (01:05)
[2024-10-04] MEDS ORDERED: ROPIVACAINE 5 MG/ML 30 ML VIAL ONE (01:05)
[2024-10-04] MEDS ORDERED: SODIUM CHLORIDE 0.9% 250 ML BAG ONE (01:05)
[2024-10-04] MEDS: OXYTOCIN 30 UNITS/500 ML NS 30 UNIT in SALINE 1 500ML.BAG IV SCH (03:57)
--- NOTE | 2024-10-04 04:12 | P.HPOB ---
History of Present Illness H&P Date: 10/04/24 Chief Complaint: labor 34-year-old presented at 40 weeks gestation in labor. Her cervix was 3 cm dilated, 70% effaced, -2 station. She was ame every 3 to 4 minutes. heart tones 140 with moderate variability and reactive, category 1. Review of Systems All systems: negative Constitutional: Denies chills, Denies fever Eyes: denies blurred vision, denies pain Ears, nose, mouth and throat: Denies headache, Denies sore throat Cardiovascular: Denies chest pain, Denies shortness of breath Respiratory: Denies cough Gastrointestinal: Denies abdominal pain, Denies diarrhea, Denies nausea, Denies vomiting Genitourinary: Denies dysuria, Denies hematuria Musculoskeletal: Denies myalgias Integumentary: Denies pruritus, Denies rash Neurological: Denies numbness, Denies weakness Psychiatric: Denies anxiety, Denies depression Endocrine: Denies fatigue, Denies weight change Past Medical History Past Medical History: No Reported History Additional Past Medical History / Comment(s): STATES ABDOMINAL PAIN FROM GALL STONES. Kidney stones History of Any Multi-Drug Resistant Organisms: None Reported Past Surgical History: No Surgical Hx Reported Additional Past Surgical History / Comment(s): Gallbladder removed; "kidney stents" Past Anesthesia/Blood Transfusion Reactions: No Reported Reaction Additional Past Anesthesia/Blood Transfusion Reaction / Comment(s): NO ANESTHESIA HX.- STATES THEY HAD DIFFICULTY INSERTING last EPIDURAL FOR CHILDBIRTH Past Psychological History: No Psychological Hx Reported Smoking Status: Never smoker Past Alcohol Use History: None Reported Additional Past Alcohol Use History / Comment(s): SMOKES 2-3 CIGARETTES /DAY. SMOKING FOR 9-10 YEARS. Past Drug Use History: Marijuana - Past Family History Father Family Medical History: No Reported History Mother Family Medical History: Cancer Additional Family Medical History / Comment(s): CERVICAL CANCER Medications and Allergies Home Medications Medication Instructions Recorded Confirmed Type Cephalexin [Keflex] 500 mg PO Q8HR #15 cap 10/22/22 10/03/24 Rx Ketorolac [Toradol] 10 mg PO Q6HR PRN #15 tab 10/22/22 10/03/24 Rx Vit No.179/Iron/Folic 1 tab PO DAILY 10/03/24 10/03/24 History [ Tablet] Allergies Allergy/AdvReac Type Severity Reaction Status Date / Time No Known Allergies Allergy Verified 10/20/22 08:55 Exam Osteopathic Statement: *. No significant issues noted on an osteopathic structural exam other than those noted in the History and Physical/Consult. Vital Signs Temp Pulse Resp BP Pulse Ox 10/04/24 00:40 96.5 F L 77 18 123/58 95 Intake and Output 10/03/24 10/03/24 10/04/24 14:59 22:59 06:59 Other: Weight 105.233 kg Heart: Regular rate and rhythm Lungs: Clear to auscultation bilaterally Abdomen: Soft, nontender Extremities: Negative Homans sign Results Result Diagrams: 10/04/24 00:33 Abnormal Lab Results - Last 24 Hours (Table) 10/04/24 Range/Units 00:33 WBC 15.41 H (4.50-10.00) 10*3/uL Immature Gran # 0.12 H (0.00-0.04) 10*3/uL Neutrophils # 11.18 H (1.80-7.70) 10*3/uL Assessment and Plan (1) Normal labor Current Visit: No Status: Acute Code(s): O80 - ENCOUNTER FOR FULL-TERM UNCOMPLICATED DELIVERY; Z37.9 - OUTCOME OF DELIVERY, UNSPECIFIED SNOMED Code(s): 69116032 (2) Third trimester Current Visit: No Status: Acute Code(s): Z34.93 - ENCNTR FOR SUPRVSN OF NORMAL PREG, UNSP, THIRD TRIMESTER SNOMED Code(s): 00593191 Plan: 1. Admit to family birthplace 2. Expectant management 3. Anticipate normal vaginal delivery
--- NOTE | 2024-10-04 04:14 | P.PROBDLV ---
Vaginal Delivery Note - . Vaginal Delivery Note: Date of service October 04, 2024 34-year-old presented at 40 weeks gestation in labor. Her cervix was 3 cm dilated, 70% effaced, -2 station. She was ame every 3 to 4 minutes. heart tones 140 with moderate variability and reactive, category 1. Patient was admitted to [facility] and given an epidural for pain management. At 3:49 AM when the cervix was completely dilated amniotomy was performed to clear fluid was noted. Patient pushed, delivered a viable female infant over intact perineum under epidural anesthesia at 3:53 AM. Head delivered OA, anterior shoulder delivered gentle downward guidance followed by posterior shoulder and rest of body. Nose and mouth bulb suction, cord clamped and cut, infant placed on mother's abdomen. Apgars 8, 9, weight 7 pounds 0.9 ounces. Placenta delivered spontaneously, intact with three-vessel cord at 357. Vagina, cervix, perineum were inspected. No lacerations noted. Pitocin was added to the IV to help contract the uterus and the bladder was drained of all urine. Mother and baby in stable condition.
[2024-10-04] MEDS ORDERED: diphenhydrAMINE 50 MG CAP PO PRN (06:40)
[2024-10-04] MEDS ORDERED: diphenhydrAMINE 50 MG/ML 1 ML VIAL IVP PRN ×2 (06:40)
[2024-10-04] MEDS ORDERED: HYDROCORTISONE 2.5% RECTAL CREAM 30 GM TUBE RECTAL PRN (06:40)
[2024-10-04] MEDS ORDERED: LANOLIN CREAM 1 GM TUBE TOPICAL PRN (06:40)
[2024-10-04] MEDS ORDERED: BENZOCAINE/MENTHOL SPRAY 1 GM/SPRAY AEROSOL TOPICAL PRN (06:40)
[2024-10-04] MEDS ORDERED: SIMETHICONE 80 MG CHEWABLE PO PRN (06:40)
[2024-10-04] MEDS ORDERED: ZOLPIDEM 5 MG TAB PO PRN (06:40)
[2024-10-04] MEDS ORDERED: diphenhydrAMINE 25 MG CAP PO PRN (06:40)
[2024-10-04] MEDS: SENNOSIDES-DOCUSATE SODIUM 1 EACH TAB PO SCH (13:12)
[2024-10-04] MEDS: IBUPROFEN 800 MG TAB PO PRN (16:29)
[2024-10-04] MEDS: ACETAMINOPHEN TAB 500 MG TAB PO PRN (19:46)
[2024-10-05 07:15] LABS: Basophils # (A) 0.03 10*3/uL (0.00-0.10); Basophils % (A) 0.3 %; Eosinophils # (A) 0.23 10*3/uL (0.04-0.35); Eosinophils % (A) 2.3 %; HCT 35.5 % (37.2-46.3); HGB 12.3 g/dL (12.0-15.0); Lymphocytes # (A) 2.64 10*3/uL (0.90-5.00); Lymphocytes % (A) 25.9 %; MCH 31.8 pg (27.0-32.0); MCHC 34.6 g/dL (32.0-37.0); MCV 91.7 fL (80.0-97.0); Mean Platelet Volume 11.1 fL (9.5-12.2); Monocytes # (A) 0.66 10*3/uL (0.20-1.00); Monocytes % (A) 6.5 %; Neutrophils # (A) 6.54 10*3/uL (1.80-7.70); Neutrophils % (A) 63.9 %; Platelet Count 173 10*3/uL (140-440); RBC 3.87 10*6/uL (4.10-5.20); WBC 10.21 10*3/uL (4.50-10.00)
[2024-10-05 08:24] VITALS: BP 122/77; PULSE 62; RESP 16; TEMP 98.3
--- NOTE | 2024-10-05 10:50 | P.DS ---
Providers Date of admission: 10/04/24 00:28 Expected date of discharge: 10/05/24 Attending physician: Marjorie Long MD Primary care physician: Stated None Hospital Course: 34 year old now PPD#1 s/p . The patient is doing well this morning and had no acute events overnight. She has no complaints this morning. She reports minimal lochia, passing flatus, voiding without difficulty, ambulating, and eating/drinking without nausea or vomiting. Infant doing well at bedside. She denies chest pain, shortness of breathing, fevers, or chills overnight. She denies pain or swelling in the legs. restrictions are reviewed with the patient including pelvic rest for 6 weeks. The patient is encouraged to call the office if she experiences any heavy bleeding, foul-smelling discharge, breast complaints, or any if she has any other concerns. She will follow up in the office in 6 weeks for exam. All questions are answered. Patient Condition at Discharge: Good Plan - Discharge Summary New Discharge Prescriptions: No Action Cephalexin [Keflex] 500 mg PO Q8HR #15 cap Ketorolac [Toradol] 10 mg PO Q6HR PRN #15 tab PRN Reason: Pain Vit No.179/Iron/Folic [ Tablet] 1 tab PO DAILY Discharge Medication List Cephalexin [Keflex] 500 mg PO Q8HR #15 cap 10/22/22 [Rx] Ketorolac [Toradol] 10 mg PO Q6HR PRN #15 tab 10/22/22 [Rx] Vit No.179/Iron/Folic [ Tablet] 1 tab PO DAILY 10/03/24 [History] Follow up Appointment(s)/Referral(s): Marjorie Long MD [STAFF PHYSICIAN] - 6 Weeks Activity/Diet/Wound Care/Special Instructions: Instructions 1. Do not begin any exercise program for 3 weeks. 2. Do not resume sexual relations for 6 weeks or longer if uncomfortable. 3. You may take tub baths or showers at any time. 4. You may use tampons if desired after 6 weeks. 5. Keep any areas repaired with stitches clean and dry. 6. If you are not nursing, wear a good fitting, supportive bra during the day and limit fluid intake for at least 1 week to prevent breast engorgement. 7. Call the office, , within the next week to make appointment for your 6 week checkup if it has not already been made. 8. Report any of the following occurrences to the doctor promptly: a. Heavy, excessive bleeding b. Chills, fever c. Burning or frequency of urination d. Pain or redness and breasts if nursing e. Increasing pain or swelling of vulva (stitches). In addition to the above instructions, the following additional should be followed: 1. No heavy lifting or straining (exercising) until after 6 week checkup. 2. Keep abdominal incision clean and dry: You may wear a dressing if more comfortable. 3. Make office appointment for 2 weeks after delivery date. Discharge Disposition: HOME SELF-CARE
== END 2024-10-05 11:00 | disposition home or self-care (01) | DRG 560 ==
LOC: FBPOP 23:14 → 4FBP 10-04 00:28
PROVIDERS: ADMIT Obstetrics & Gynecology; ATTEND Obstetrics & Gynecology
PROC: 10E0XZZ Delivery of Products of Conception, External Approach (ICD-10-PCS; principal; 2024-10-04)
PROC: 10907ZC Drainage of Amniotic Fluid, Therapeutic from Products of Conception, Via Natural or Artificial Opening (ICD-10-PCS; principal; 2024-10-04)
DX: O99.334 Smoking (tobacco) complicating childbirth (principal); F17.210 Nicotine dependence, cigarettes, uncomplicated; Z3A.40 40 weeks gestation of pregnancy; Z37.0 Single live birth; Z87.442 Personal history of urinary calculi; Z28.310 Unvaccinated for COVID-19; Z28.21 Immunization not carried out because of patient refusal
CPT/HCPCS: 59025; 85025; 86850; 86900; 86901; 99213